=== PATIENT | female | born 1965 | race Caucasian/White ===

== ENCOUNTER 2019-06-28 11:23 | Emergency (ER) | payer BC, SELFPAY ==
[2019-06-28 11:24] VITALS: BP 186/83; PULSE 125; RESP 16; TEMP 36.4; O2SAT 99; BMI 32.3
--- NOTE | 2019-06-28 11:52 | EKG12_ITS ---
Test Reason : SUICIDAL Blood Pressure : / mmHG Vent. Rate : 100 BPM Atrial Rate : 100 BPM P-R Int : 156 ms QRS Dur : 076 ms QT Int : 376 ms P-R-T Axes : 067 035 039 degrees QTc Int : 485 ms Normal sinus rhythm Prolonged QT Abnormal ECG Confirmed by DEION RIVERO ([id number]), index editor JOHNATHAN ESQUIVEL ([id number] on 07/04/2019 3:45:14 PM Referred By: NICOLAS Confirmed By:DEION RIVERO
--- NOTE | 2019-06-28 11:58 | ED.DCSUM_ITS ---
History of Present Illness Chief Complaint: Suicidal Informant: Patient, Friend Onset: Days - Patient became aware 2 days ago that her has been dating someone else and that other family members were aware. Context: Sudden Onset Conflict: Family Timing: Continuous Current Severity: Moderate Maximum Severity: Severe Worsened by: Situational factors, Alcohol intoxication Relieved by: Nothing Associated Symptoms: Depressed, Change in Eating - Patient states has not had anything to eat in 2 to 3 days and minimal liquid intake, Change in sleeping, Decreased Interest, Decreased Concentration, Suicidal Thoughts, Easily distracted, Agitated, Angry. Negative for: Grandiosity, Flight of Ideas, Increased activity, Confusion, Paranoia, Visual Hallucinations, Auditory Hallucinations Specific plan (suicidal thought): Patient states she wants to hurt herself, but she does not have a plan. Narrative: Patient is a middle-age woman with history of lung disease and GERD who was brought to the emerge department by [employer]. She did not go to work today. Friend was concerned. Police were contacted for a welfare check. She told law enforcement she has not eaten. She told law enforcement that she is depressed. She told [place] that she would hurt herself. She has no history of psychiatric disorder. When asked for her explanation she began to cry and asked her friend who called for the welfare check to inform me of events. History is limited to the fact that she is depressed because her has been seeing someone else and other family members were aware. Patient has been living on her own for the last 2 days. Patient states she has not had any to eat in 2 to 3 days. There is been no alteration in sleep. Prior similar symptoms: No Recent Illness/Hospitalization: No - Past Medical History (1) History of COPD Status: Chronic (2) History of gastroesophageal reflux (GERD) Status: Acute Past Medical History - Allergies and Home Meds Allergies/Adverse Reactions: Allergies hydroxychloroquine [From Plaquenil] Allergy (Verified 06/28/19 11:28) Itching lorazepam [From Ativan] Allergy (Verified 06/28/19 11:28) Itching Primary Care Physician: Marium Alexis MD [Primary Care Provider] - Prior records reviewed: Yes Surgical History: noncontributory Lives: Alone Smoking Status: Current every day smoker Alcohol: Heavy Drugs: None Review of Systems General: Reports: Malaise. Denies: Chills, Fever, Sweats Eyes: Denies: Visual changes - bilaterally, Diplopia ENT: Denies: Rhinorrhea, Sore throat Cardiovascular: Denies: Chest pain, Palpitations Respiratory: Denies: Dyspnea, Cough, Dyspnea on exertion Gastrointestinal: Reports: Nausea Genitourinary: Denies: Dysuria, Hematuria, Frequency Musculoskeletal: Denies: Myalgias, Arthralgias, Neck pain, Back pain, Extremity Pain Skin: Denies: Rash, Abscess, Wounds Neurological: Denies: Headache, Weakness, Numbness Psych: Reports: Depression, Suicidal thoughts, Suicidal ideations Hematologic: Denies: Easy bruising, Easy bleeding Physical Exam Vital Signs/Narrative: Vital Signs Temp Pulse Resp BP Pulse Ox 06/28/19 11:24 97.5 F L 125 H 16 186/83 H 99 Inital Vital Signs reviewed: Yes General: Well nourished, Well developed, Obese Head: Normocephalic, Atraumatic Eyes: Perrl, EOMI, Pale conjunctiva, Scleral icterus, - - There is evidence of proptosis, which raises concern for thyroid disease ENT: No rhinorrhea, TM's clear, Dry mucous membranes Neck: Supple, Nontender, No lymphadenopathy, No JVD Cardiovascular: Regular rhythm, No murmurs, Normal S1, Normal S2, Tachycardia Respiratory: No distress, CTA bilaterally, Chest nontender Abdomen: Soft, Nontender, Nondistended, Normal bowel sounds Rectal: Deferred Back: Nontender, Normal Inspection Extremities: Nontender, No Edema Skin: Normal color, No rash Neurological: Alert, Oriented x3, Cranial nerves II-XII grossly intact, Normal Strength, Normal Sensation, Normal DTR Psych: Normal Appearance - In hospital gown when I examined her., Depressed, Irritable, Labile, Poverty of Speech, Suicidal thoughts. Negative for: Logical sequential goal directed thoughts, No suicidal or homicidal ideation, Normal Stable Appropriate Affect Diagnostic/Tx/Re-eval Laboratory Results 06/28/19 06/28/19 06/28/19 12:25 12:25 12:25 WBC 5.7 RBC 5.64 H Hgb 12.5 Hct 43.0 MCV 76.2 L MCH 22.2 L MCHC 29.1 L RDW Std Deviation 55.7 H RDW Coeff of Cornell 21.2 H Plt Count 407 MPV 9.9 Immature Gran % (Auto) 0.200 Neut % (Auto) 62.0 Lymph % (Auto) 27.6 [place] % (Auto) 8.6 Eos % (Auto) 0.5 Baso % (Auto) 1.1 H Absolute Neuts (auto) 3.5 Absolute Lymphs (auto) 1.57 Nucleated RBC % 0 Differential Comment SCANNED RBC Morphology N CHROM Anisocytosis 1+ Sodium 140 Potassium 3.9 Chloride 108 H Carbon Dioxide 16.0 L Anion Gap 16 H BUN 12 Creatinine 0.82 Estim Creat Clear Calc 74.28 Est GFR (MDRD) Af Amer 93 Est GFR (MDRD) Non-Af 77 BUN/Creatinine Ratio 14.6 Glucose 63 L Calcium 9.0 TSH 0.68 Serum , Qual Urine Opiates Screen Urine Methadone Screen Ur Barbiturates Screen Ur Phencyclidine Scrn Ur Amphetamines Screen U Methamphetamin-MDMA U Benzodiazepines Scrn Urine Cocaine Screen U Cannabinoids Screen Ur Drug Screen Comment Ethyl Alcohol 235.0 06/28/19 06/28/19 12:25 13:05 WBC RBC Hgb Hct MCV MCH MCHC RDW Std Deviation RDW Coeff of Cornell Plt Count MPV Immature Gran % (Auto) Neut % (Auto) Lymph % (Auto) [place] % (Auto) Eos % (Auto) Baso % (Auto) Absolute Neuts (auto) Absolute Lymphs (auto) Nucleated RBC % Differential Comment RBC Morphology Anisocytosis Sodium Potassium Chloride Carbon Dioxide Anion Gap BUN Creatinine Estim Creat Clear Calc Est GFR (MDRD) Af Amer Est GFR (MDRD) Non-Af BUN/Creatinine Ratio Glucose Calcium TSH Serum , Qual NEGATIVE Urine Opiates Screen NEGATIVE Urine Methadone Screen NEGATIVE Ur Barbiturates Screen NEGATIVE Ur Phencyclidine Scrn NEGATIVE Ur Amphetamines Screen NEGATIVE U Methamphetamin-MDMA NEGATIVE U Benzodiazepines Scrn NEGATIVE Urine Cocaine Screen NEGATIVE U Cannabinoids Screen NEGATIVE Ur Drug Screen Comment Ethyl Alcohol Blood work is unremarkable except for alcohol level of 236. This was consistent with the amount of alcohol she admits to drinking. - EKG Initial EKG Interpretation: Sinus Rhythm - Ventricular rate is 100. VT interval is 156 ms, QRS duration 76 ms. QT duration 3 and 76 ms QTc is 485 which is prolonged. [place] is normal. Patient depressed and despondent after becoming aware that her 's been having an affair and had family members knew and did not tell her. Based on patient's symptoms and voiced complaints blood work was obtained to assess renal function and hydration status. Because of the proptosis TSH was obtained. Case management was consulted to facilitate placement in psychiatric facility. She was pink slipped by law enforcement. Case management is working on placement to psychiatric facility. The oncoming physician were made aware of patient in the event there is any change in her clinical status. ED Disposition - Plan for ED Patient: Disposition: Psychiatric Hospital or Unit Diagnosis: Severe major depression, Alcohol intoxication, Sinus tachycardia by electrocardiogram Referrals: Marium Alexis MD [Primary Care Provider] -
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
[2019-06-28 12:35] LABS: Absolute Lymphocyte Count 1.57 X10^3/uL (0.83-4.51); Absolute Neutrophil Count 3.5 X10^3/uL (2.0-7.7); Basophil# 0.06 X10^3/uL; Basophil% 1.1 % (0-1); Eosinophil# 0.03 X10^3/uL; Eosinophils% 0.5 % (0-5); Hemoglobin 12.5 g/dL (12.0-15.0); Lymphocyte # 1.57 X10^3/ul (4.0); Lymphocyte % 27.6 % (19-41); Mean Corp Hgb Conc 29.1 g/dL (32-36); Mean Corpuscular Hgb 22.2 pg (27.0-32.0); Mean Corpuscular Volume 76.2 fL (81-99); Mean Platelet Vol. 9.9 fl (6.2-12.0); Monocyte# 0.49 X10^3/uL; Monocyte% 8.6 % (0-10); NRBC Flagged by Analyzer 0 % (0-5); Neutrophil # 3.52 X10^3/uL (2.7-7.7); POSITIVE MORPHOLOGY YES; Platelet Count 407 K/mm3 (150-450); RBC Distribution Width CV 21.2 % (11.6-14.6); RBC Distribution Width SD 55.7 fl (35.1-43.9); Red Blood Count 5.64 M/mm3 (4.2-5.4); White Blood Count 5.7 K/mm3 (4.4-11.0)
[2019-06-28 12:37] LABS: Differential Indicated SCAN CRITERIA MET
[2019-06-28 12:49] LABS: Internal QC Validated? YES +Cl - CLEAR BKGD; Pregnancy, Serum, hCG Quali. NEGATIVE Negative
--- NOTE | 2019-06-28 12:49 | ED.RN ---
PT ANGRY THAT SITTER NEEDS TO KEEP BATHROOM DOOR CRACKED FOR URINE SAMPLE. STATES WELL THEN YOU JUST WON'T GET ONE. THIS IS BULLSHIT.
[2019-06-28 12:57] LABS: Anisocytosis 1+; Differential Comment SCANNED; Red Cell Morphology N CHROM NORMAL (NORM C&C)
[2019-06-28 13:00] LABS: Anion Gap 16 (5-15); BUN 12 mg/dL (7-18); BUN/Creat Ratio 14.6 RATIO (10-20); Chloride 108 mmol/L (98-107); Creatinine, Serum 0.82 mg/dL (0.55-1.02); EST Glomerular Filtration Rate 77 mL/min (>60); Est Glom Filt Rate - Afr Amer 93 mL/min (>60); Estimated Creatinine Clearance 74.28 ml/min; Glucose 63 mg/dL (74-106); Potassium 3.9 mmol/L (3.5-5.1); Sodium Level 140 mmol/L (136-145); Thyroid Stim Hormone (TSH) 0.68 uIU/mL (0.358-3.74)
[2019-06-28 13:07] VITALS: RESP 16
[2019-06-28 13:27] LABS: Amphetamine Urine VISTA NEGATIVE (<1000 ng/mL); Barbiturate Urine VISTA NEGATIVE (< 200 ng/mL); Benzodiazepine Urine VISTA NEGATIVE (< 200 ng/mL); Cocaine Urine VISTA NEGATIVE (< 300 ng/mL); Ecstacy Urine VISTA NEGATIVE (< 500 ng/mL); Methadone Urine VISTA NEGATIVE (< 300 ng/mL); PCP Urine VISTA NEGATIVE (< 25 ng/mL); THC Urine VISTA NEGATIVE (< 50 ng/mL); Vista UDS pH Range 6
[2019-06-28 14:31] VITALS: BP 174/90; PULSE 115; RESP 14; O2SAT 94
--- NOTE | 2019-06-28 14:54 | CM.ED ---
Social Work Patient medically cleared for placement per Dr. Teresa. Telephone call to [facility], no open beds. Telephone call to [facility], Monica. There are openings and [facility] is in network with patient insurance. Clinical information faxed. Pending approval. Martir FRANK, RIVERA
--- NOTE | 2019-06-28 16:13 | CM.ED ---
Social Work Telephone call from [facility], Patient accepted. Nurse to nurse: [phone]. Admitting Doctor: Dr. Giraldo. Patient to admit to [facility]. [facility] faxed. Updated patient and medical team. Patient not agreeable to plan but [facility] slip is in place. Patient cooperative. Medical team agreeable to plan. Patient wanting this social professionals to update patient daughter. Rupa - [phone]. Telephone call to Rupa Goode updated on plan and voicing understanding. Martir Tavera MSW, RIVERA
[2019-06-28 17:43] VITALS: BP 174/90; PULSE 115; RESP 14; O2SAT 94
== END 2019-06-28 17:32 ==
PROVIDERS: Emergency Provider Emergency Medicine; Family Provider Internal Medicine; PCP Internal Medicine
DX: F32.2 Major depressive disorder, single episode, severe without psychotic features (principal); F10.129 Alcohol abuse with intoxication, unspecified; Y90.9 Presence of alcohol in blood, level not specified; R00.0 Tachycardia, unspecified; J44.9 Chronic obstructive pulmonary disease, unspecified; K21.9 Gastro-esophageal reflux disease without esophagitis; E66.9 Obesity, unspecified; F17.200 Nicotine dependence, unspecified, uncomplicated; Z68.32 Body mass index [BMI] 32.0-32.9, adult
CPT/HCPCS: 80048; 80307; 80320; 84443; 84703; 85025; 93005; 99285; G0480

== ENCOUNTER 2019-10-31 20:29 | Emergency (ER) | payer BC, SELFPAY ==
[2019-10-31 20:30] VITALS: BP 151/79; PULSE 79; RESP 22; TEMP 36.7; O2SAT 94; BMI 31.6
--- NOTE | 2019-10-31 21:04 | EKG12_ITS ---
Test Reason : DYSRHYTHMIA Blood Pressure : / mmHG Vent. Rate : 111 BPM Atrial Rate : 111 BPM P-R Int : 146 ms QRS Dur : 080 ms QT Int : 352 ms P-R-T Axes : 081 064 029 degrees QTc Int : 478 ms Sinus tachycardia Otherwise normal ECG Confirmed by DEION RIVERO ([id number]), legal editor JOHNATHAN ESQUIVEL ([id number]) on 11/03/2019 3:03:58 PM Referred By: DC Confirmed By:DEION RIVERO
--- NOTE | 2019-10-31 21:10 | CM.ED ---
SOCIAL WORK PATIENT ARRIVES TO ED BY [facility] AND PINK SLIPPED BY POLICE. PATIENT INTOXICATED. UNABLE TO EVALUATE AT THIS TIME. Sofia ACKERMAN, BLINDMAKER, BILINGUAL MANAGER.
[2019-10-31 21:15] LABS: Absolute Lymphocyte Count 1.64 X10^3/uL (0.83-4.51); Absolute Neutrophil Count 6.5 X10^3/uL (2.0-7.7); Basophil# 0.06 X10^3/uL; Basophil% 0.6 % (0-1); Eosinophil# 0.01 X10^3/uL; Eosinophils% 0.1 % (0-5); Hematocrit 41.4 % (37-47); Hemoglobin 12.2 g/dL (12.0-15.0); Lymphocyte # 1.64 X10^3/ul (4.0); Lymphocyte % 17.7 % (19-41); Mean Corp Hgb Conc 29.5 g/dL (32-36); Mean Corpuscular Hgb 22.1 pg (27.0-32.0); Mean Corpuscular Volume 75.1 fL (81-99); Mean Platelet Vol. 9.4 fl (6.2-12.0); Monocyte# 1.06 X10^3/uL; Monocyte% 11.4 % (0-10); NRBC Flagged by Analyzer 0 % (0-5); Neutrophil # 6.48 X10^3/uL (2.7-7.7); Neutrophil % 69.9 % (47-70); POSITIVE MORPHOLOGY YES; Platelet Count 409 K/mm3 (150-450); RBC Distribution Width CV 20.4 % (11.6-14.6); Red Blood Count 5.51 M/mm3 (4.2-5.4); White Blood Count 9.3 K/mm3 (4.4-11.0)
[2019-10-31 21:19] LABS: Differential Indicated SCAN CRITERIA MET
--- NOTE | 2019-10-31 21:26 | CM.ED ---
SOCIAL WORK UPDATED BY [facility] WITH REGISTRATION, UNABLE TO VERIFY INSURANCE AT THIS TIME. Sofia ACKERMAN, SUPPLY SPECIALIST, BOTTLE INSPECTOR
[2019-10-31 21:27] LABS: ALB/GLOB Ratio 0.9 RATIO (0.9-2.4); AST(SGOT) 60 U/L (15-37); Alanine Aminotransfer ALT/SGPT 159 U/L (13-56); Albumin, Serum 3.8 g/dL (3.2-5.0); Alkaline Phosphatase 82 U/L (45-117); Anion Gap 14 (5-15); BUN 11 mg/dL (7-18); BUN/Creat Ratio 11.7 RATIO (10-20); Calcium,Total 8.4 mg/dL (8.5-10.1); Chloride 109 mmol/L (98-107); Creatinine, Serum 0.94 mg/dL (0.55-1.02); EST Glomerular Filtration Rate 66 mL/min (>60); Est Glom Filt Rate - Afr Amer 80 mL/min (>60); Estimated Creatinine Clearance 64.79 ml/min; Globulin 4.3 g/dL (2.2-4.2); Glucose 71 mg/dL (74-106); Potassium 3.4 mmol/L (3.5-5.1); Protein, Total 8.1 g/dL (6.4-8.2); Sodium Level 142 mmol/L (136-145)
[2019-10-31 21:45] LABS: Amphetamine Urine VISTA NEGATIVE (<1000 ng/mL); Barbiturate Urine VISTA NEGATIVE (< 200 ng/mL); Benzodiazepine Urine VISTA NEGATIVE (< 200 ng/mL); Cocaine Urine VISTA NEGATIVE (< 300 ng/mL); Ecstacy Urine VISTA NEGATIVE (< 500 ng/mL); Methadone Urine VISTA NEGATIVE (< 300 ng/mL); PCP Urine VISTA NEGATIVE (< 25 ng/mL); THC Urine VISTA NEGATIVE (< 50 ng/mL); Vista UDS pH Range 5
[2019-10-31 21:53] LABS: Internal QC Validated? YES +Cl - CLEAR BKGD; Pregnancy, Serum, hCG Quali. NEGATIVE Negative
[2019-10-31 21:59] LABS: Anisocytosis 1+; Differential Comment SCANNED; Hypochromasia 1+; Target Cells RARE
[2019-10-31 22:00] VITALS: RESP 16
[2019-10-31 22:36] LABS: Acetaminophen (Tylenol) Level < 2.0 ug/mL (10.0-30.0); Salicylate 5.1 mg/dL (2.8-20.0)
--- NOTE | 2019-10-31 22:52 | ED.VISSUMM ---
- ER Visit Summary Date of Service: 10/31/19 Chief Complaint: Suicidal ideation History of Present Illness: The patient is a 53 F with suicidal ideation. The patient has been drinking heavily this evening. She was brought in accompanied by law enforcement. She had told to neighbors that she wanted to kill her self. She denies this for me. No plan or attempt. EMS found medication bottles in the home including Vistaril. Patient denies any other ingestion or drug use. Physical Examination: Afebrile and vital signs unremarkable. Patient alert and oriented. Head and neck atraumatic. HEENT exam normal. Heart regular. Lungs clear. Abdomen soft. Extremities atraumatic with good strength and sensation. Test Results: EKG sinus rhythm at a rate of 111. QTc 478. CBC unremarkable. Potassium 3.4, chloride 109, CO2 19, glucose 71. ALT 159 and AST 60. hCG negative. Salicylates negative. Tylenol negative. Alcohol level 381. Tox screen is negative. Emergency Department Course and Treatment: Patient had suicide precautions. Law enforcement officers completed a pink slip. Patient is clinically intoxicated and does admit to historical alcohol use. Alcohol level was 381. She will be monitored until clinically sober. Otherwise her labs were all fairly unremarkable. Patient will be observed overnight by the oncoming physician. She may eat and or drink as needed. Diet was ordered. She will need a crisis evaluation when she is clinically sober. Pending no further issues once the patient is clinically sober, she will be medically cleared for transfer and admission at a psychiatric facility. Treatment Plan: As above Disposition: Pending crisis evaluation Impression: 1. Alcohol intoxication 2. Suicidal ideation This note was generated with [email or web address] software. It may contain incorrect words, spelling, and punctuation that were not noted in review of the chart prior to signing ED Disposition - Plan for ED Patient: Referrals: Marium Alexis MD [Primary Care Provider] -
[2019-10-31 23:00] VITALS: RESP 16
[2019-11-01] VITALS (13 sets, daily range): BP systolic 144–174; BP diastolic 76–90; PULSE 70–114; RESP 14–18; TEMP 36.6–37.1; O2SAT 93–96
[2019-11-01] MEDS: proMETHazine 25 MG/ML Syringe 12.5 MG IM (00:16)
--- NOTE | 2019-11-01 06:45 | ED.RN ---
PATIENT VOMITED. SHE CAN'T HAVE MORE PHENERGAN TILL 800.
[2019-11-01] MEDS: Ondansetron ODT 4 MG Tablet PO (06:51)
--- NOTE | 2019-11-01 08:45 | ED.RN ---
PT REQUESTING AMMEDS. USUALLY TAKES THEN WHEN SHE GETS UP IN MORNING
[2019-11-01] MEDS: Citalopram 20 MG Tablet PO (08:47)
[2019-11-01] MEDS: Pantoprazole Sodium 40 MG Tablet PO (08:47)
[2019-11-01] MEDS: hydrOXYzine PAM 25 MG Capsule 50 MG PO (08:48)
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
--- NOTE | 2019-11-01 12:27 | CM.ED ---
Social Work Telephone call to [facility]. They do have open beds and accept patient insurance. Clinical information faxed. Currently pending updating blood alcohol level and will fax when obtained. Pending review/approval. Martir FRANK, RIVERA
--- NOTE | 2019-11-01 13:16 | CM.ED ---
Social Work Telephone call from [facility], requesting CK and Ammonia levels to be obtained. Updated medical team. Martir Tavera COMMISSIONS ANALYST, RIVERA
[2019-11-01 13:55] LABS: CPK Total, Creatine Kinase 667 U/L (26-192)
[2019-11-01 14:06] LABS: Ammonia < 10.0 umol/L (11-32)
--- NOTE | 2019-11-01 14:38 | CM.ED ---
Social Work Lab results back. Faxed CK, Ammonia level and blood alcohol levels to [facility] for further review. Martir Tavera SALES DEVELOPER, CORPORATE CONTROLLER
--- NOTE | 2019-11-01 14:50 | CM.ED ---
Social Work Telephone call from [facility]. [facility] stating that CK level is too high. [facility] recommending for patient to received fluids and then have lab value checked again, if the CK is trending down, at this point [facility] can be updated again and be able to review case further. Updated medical team on this including Dr. Marti. Patient to be given fluids and have labs checked in a few hours. Martir Tavera MSW, RIVERA
[2019-11-01] MEDS: 0.9% Normal Saline 1,000 ML 999 ML IV ×2 (15:05→16:07)
[2019-11-01 18:24] LABS: CPK Total, Creatine Kinase 540 U/L (26-192)
--- NOTE | 2019-11-01 18:40 | CM.ED ---
Social Work Updated CK lab value obtained. Faxed updated labs to [facility]. Pending further review. Martir Tavera LOADING SUPERVISOR, RIVERA
--- NOTE | 2019-11-01 19:19 | CM.ED ---
Social Work Telephone call from [facility], patient accepted. Patient accepted to the [facility]. Nurse to Nurse report: [phone]. Admitting Doctor: Dr. Giraldo. Updated patient and medical team. [facility] slip faxed. [facility] to set up transportation. Martir FRANK, RIVERA
== END 2019-11-01 20:42 ==
PROVIDERS: Emergency Medicine; Emergency Provider Emergency Medicine; PCP Internal Medicine
DX: R45.851 Suicidal ideations (principal); F10.129 Alcohol abuse with intoxication, unspecified; Y90.8 Blood alcohol level of 240 mg/100 ml or more; K21.9 Gastro-esophageal reflux disease without esophagitis; J44.9 Chronic obstructive pulmonary disease, unspecified; Z72.0 Tobacco use
CPT/HCPCS: 36415; 80053; 80307; 80320; 80329; 82140; 82550; 84703; 85025; 93005; 96360; 96361; 96372; 99285; J7030; A4216; G0480

== ENCOUNTER 2019-12-18 17:01 | Emergency (ER) | payer MEDICAID, SELFPAY ==
[2019-12-18 17:03] VITALS: BP 137/91; PULSE 102; RESP 18; TEMP 36.3; BMI 32.5
[2019-12-18 17:09] VITALS: BP 137/91; PULSE 94; RESP 18; TEMP 36.3; O2SAT 97
[2019-12-18] MEDS: Ibuprofen 400 MG Tablet 800 MG PO (17:28)
--- NOTE | 2019-12-18 17:30 | RAD_ITS ---
STUDY: X-RAY - LEFT KNEE REASON FOR EXAM: Female, 54 years old. EtOH, fall 3 days ago, left knee pain TECHNIQUE: 4 view(s) of the knee. COMPARISON: None. FINDINGS: Normal visualized distal femur. Normal visualized proximal tibia and fibula. Normal proximal tibiofibular articulation. There is no demonstrated fracture. Normal medial femorotibial compartment. Normal lateral femorotibial compartment. Normal patellofemoral articulation. There is no demonstrated joint effusion. The soft tissue structures are unremarkable. RAD/Knee 4 or More Views IMPRESSION: Normal x-ray examination of the knee. Electronically Signed: Lucas Tolbert MD at 17:55 EDT , Service support ,
--- NOTE | 2019-12-18 17:30 | RAD_ITS ---
STUDY: X-RAY CHEST REASON FOR EXAM: Female, 54 years old. EtOH, fall 3 days ago, rib pain, sob, fever TECHNIQUE: Single AP portable view of the chest. COMPARISON: None. FINDINGS: Prominent right subcutaneous emphysema. This makes it impossible to exclude small pneumothorax on the right. Subcutaneous emphysema seen in the neck. Multiple right rib fractures including the seventh and eighth ribs. No definite infiltrates or areas of atelectasis or effusions. Left lung is clear. Normal size heart. Normal mediastinum and renetta. Normal visualized pulmonary arteries. Normal visualized aortic arch and descending thoracic aorta. Normal visualized thoracic spine. Normal visualized ribs, clavicles, and shoulders. There is no demonstrated abnormality of the visualized soft tissue structures of the upper abdomen. RAD/Chest 1 View IMPRESSION: Multiple right rib fractures. Prominent right subcutaneous emphysema making it impossible to exclude pneumothorax although none definitely seen. Electronically Signed: Lucas Tolbert MD at 17:59 EDT , Service support ,
--- NOTE | 2019-12-18 17:45 | CT_ITS ---
STUDY: CT CHEST WITHOUT CONTRAST REASON FOR EXAM: Female, 54 years old. FALL 3 DAYS AGO,SOB AND RIB PAIN -- HX:ASTHMA RADIATION DOSAGE (If Supplied By Facility): CTDIvol = ( 18.17 ) mGy, DLP = ( 989.73 ) mGycm TECHNIQUE: Transaxial imaging was performed without the administration of intravenous contrast material. Individualized dose optimization techniques were used for this CT. COMPARISON: Chest x-ray of the same day which showed rib fractures and extensive subcutaneous emphysema.. FINDINGS: Normal lung volumes. Evidence of underlying COPD with centrilobular emphysema changes in the upper lobes. Miniscule right pneumothorax best seen along the anterior right lung base. No focal infiltrates contusions or areas of atelectasis. Severe subcutaneous emphysema throughout the right chest wall, and extending up into the neck, thoracic inlet, and as far as the base of the skull. Subcutaneous emphysema extends posteriorly along the back and is far as the mid abdomen. No effusions. Fractures of the right seventh, eighth, ninth, and ribs. No other fractures are seen. Normal heart and pericardium. Normal hilar regions. Normal unenhanced pulmonary arteries. Normal aorta arch and descending thoracic aorta. There is no demonstrated abnormality of the visualized upper abdomen. CT/Chest without Contrast IMPRESSION: Severe right sided subcutaneous emphysema. This is related to several right-sided rib fractures. Trivial right pneumothorax. Underlying COPD. No pulmonary opacities or effusions. Electronically Signed: Lucas Tolbert MD at 18:23 EDT , Service support ,
[2019-12-18 17:50] LABS: Absolute Lymphocyte Count 1.08 X10^3/uL (0.83-4.51); Absolute Neutrophil Count 4.8 X10^3/uL (2.0-7.7); Basophil# 0.06 X10^3/uL; Basophil% 0.9 % (0-1); Eosinophil# 0.12 X10^3/uL; Eosinophils% 1.7 % (0-5); Hematocrit 38.1 % (37-47); Hemoglobin 11.6 g/dL (12.0-15.0); Lymphocyte # 1.08 X10^3/ul (4.0); Lymphocyte % 15.7 % (19-41); Mean Corp Hgb Conc 30.4 g/dL (32-36); Mean Corpuscular Hgb 23.9 pg (27.0-32.0); Mean Corpuscular Volume 78.6 fL (81-99); Mean Platelet Vol. 9.5 fl (6.2-12.0); Monocyte# 0.78 X10^3/uL; Monocyte% 11.4 % (0-10); NRBC Flagged by Analyzer 0 % (0-5); Neutrophil # 4.78 X10^3/uL (2.7-7.7); Neutrophil % 69.6 % (47-70); POSITIVE MORPHOLOGY YES; Platelet Count 345 K/mm3 (150-450); RBC Distribution Width CV 24.5 % (11.6-14.6); RBC Distribution Width SD 67.7 fl (35.1-43.9); Red Blood Count 4.85 M/mm3 (4.2-5.4); White Blood Count 6.9 K/mm3 (4.4-11.0)
[2019-12-18 17:53] LABS: Differential Indicated SCAN CRITERIA MET
[2019-12-18 18:06] LABS: Albumin, Serum 3.6 g/dL (3.2-5.0); BUN 9 mg/dL (7-18); BUN/Creat Ratio 12.1 RATIO (10-20); Creatinine, Serum 0.75 mg/dL (0.55-1.02); EST Glomerular Filtration Rate 86 mL/min (>60); Est Glom Filt Rate - Afr Amer 104 mL/min (>60); Estimated Creatinine Clearance 80.27 ml/min; Glucose 122 mg/dL (74-106); Protein, Total 7.5 g/dL (6.4-8.2)
[2019-12-18 18:07] LABS: ALB/GLOB Ratio 0.9 RATIO (0.9-2.4); AST(SGOT) 141 U/L (15-37); Alanine Aminotransfer ALT/SGPT 232 U/L (13-56); Alkaline Phosphatase 80 U/L (45-117); Anion Gap 8 (5-15); Calcium,Total 8.9 mg/dL (8.5-10.1); Chloride 107 mmol/L (98-107); Globulin 3.9 g/dL (2.2-4.2); Potassium 3.3 mmol/L (3.5-5.1); Sodium Level 140 mmol/L (136-145)
[2019-12-18 18:12] VITALS: BP 147/75; PULSE 90; RESP 28; TEMP 36.4; O2SAT 99
[2019-12-18 18:20] LABS: Anisocytosis 2+; Differential Comment SCANNED; Macrocytosis 1+; Microcytosis 1+
--- NOTE | 2019-12-18 18:34 | ED.DCSUM_ITS ---
- ER Visit Summary Date of Service: 12/18/19 Chief Complaint: Fall History of Present Illness: The patient is a 54 F who presents with right rib pain and left knee pain that began after a fall 3 days ago. Patient states her pain has been getting progressively worse. Patient admits to drinking alcohol to help with the pain. Patient states the pain is sharp. Patient states the pain is localized to her right ribs and left knee. Patient states nothing makes it better or worse. Patient admits to some nausea and vomiting. Patient denies any shortness of breath. Patient denies any fevers or chills. Patient does admit to some neck and back pain. Physical Examination: Vital signs are stable. Patient is afebrile. Patient is in no acute distress. Patient admits to drinking alcohol and appears intoxicated. Oral mucosa is pink and moist. Neck is supple. Trachea is midline. There is no JVD. Heart was regular rate and rhythm. Lungs were diminished bilaterally. Respiratory effort was limited due to pain. There is subcutaneous emphysema noted in the right chest and neck. Abdomen is soft. Bowel sounds are normal. There is no tenderness. Extremities are intact. There is edema and ecchymosis over the left knee. Range of motion was slightly limited secondary to pain. There is no laxity appreciated. Cranial nerves II through XII are intact. There are no focal motor or sensory deficits. Test Results: AP chest x-ray was obtained. There is subcutaneous emphysema noted. There are multiple right rib fractures. There is no definite pneumothorax noted. X-rays of the left knee were obtained. There is no acute fracture or dislocation. CT scan of the chest was obtained. There is severe right-sided subcutaneous emphysema. There are several right-sided rib fractures. There is a very small right pneumothorax. There is COPD. There are no pleural effusions. There are no pulmonary opacities. This was interpreted by the radiologist and reviewed by myself. CBC and comprehensive metabolic profile were obtained and were essentially within normal limits. Serum alcohol level was obtained and was 296. Emergency Department Course and Treatment: Patient was given a dose of ibuprofen here. Patient was feeling better on reevaluation. Patient will be observed in the emergency department until she is clinically sober. Case was discussed with Dr. Goins, cash shortage investigator. He recommends having the patient follow-up as an outpatient. Since the pneumothorax is trivial, he does not feel chest tube is necessary at this time. Since the patient is not hypoxic, he does not feel the patient warrants admission to the hospital at this time. Patient will be given instructions on what to watch out for as far as signs and symptoms which should prompt return to the emergency department. Patient started complaining more of pain in the right side of her chest. Patient was given morphine. Patient was given a prescription for a short course of Percocet. Patient was instructed to follow-up with her primary care physician in 3 to 5 days. Patient understood and was agreeable with the plan. All questions were answered. Disposition: Discharge home Impression: 1. Multiple right rib fractures 2. Subcutaneous emphysema right chest and neck This note was generated with [employer] dictation software. It may contain incorrect words, spelling, and punctuation that were not noted in review of the chart prior to signing ED Disposition - Plan for ED Patient: Disposition: Home or Assisted Living Diagnosis: Multiple rib fractures, Subcutaneous emphysema, Alcohol intoxication Instructions: ED INTOXICATION Alcohol, ED Rib Fx Prescriptions: Oxycodone HCl/Acetaminophen [Percocet 5/325] 1 tab PO Q6H PRN PRN 3 Days #12 tab PRN Reason: Pain Prescription Printed Referrals: Marium Alexis MD [Primary Care Provider] - 5-7 Days
[2019-12-18] MEDS: Morphine 4 MG/ML Syringe IV (20:07)
[2019-12-18 20:11] VITALS: BP 129/70; PULSE 93; PULSE 95; RESP 20; RESP 22; TEMP 36.4; TEMP 36.6; O2SAT 98; O2SAT 99
[2019-12-18 21:45] VITALS: BP 128/66; PULSE 92; RESP 18; O2SAT 97
== END 2019-12-18 22:08 | disposition home or self-care (01) ==
PROVIDERS: Emergency Provider Emergency Medicine; PCP Internal Medicine
DX: S22.41XA Multiple fractures of ribs, right side, initial encounter for closed fracture (principal); T79.7XXA Traumatic subcutaneous emphysema, initial encounter; W19.XXXA Unspecified fall, initial encounter; Y93.9 Activity, unspecified; Y92.9 Unspecified place or not applicable; J44.9 Chronic obstructive pulmonary disease, unspecified; M25.562 Pain in left knee; F10.129 Alcohol abuse with intoxication, unspecified; Y90.9 Presence of alcohol in blood, level not specified
CPT/HCPCS: 71045; 71250; 73564; 80053; 80320; 85025; 96374; 99285; A4216; G0480

== ENCOUNTER 2019-12-18 22:50 | Inpatient (IN) | payer MEDICAID, SELFPAY ==
[2019-12-18 17:03] VITALS: BMI 32.5
[2019-12-18 22:51] VITALS: BP 152/118; PULSE 140; RESP 26; TEMP 36.7; O2SAT 95; BMI 29.0
[2019-12-18] MEDS: MethylPREDNISolone 125 MG/2 ML Vial IV (23:03)
[2019-12-18] MEDS: DiphenhydrAMINE 50 MG/ML Syringe IV (23:03)
[2019-12-18] MEDS: 0.9% Normal Saline 1,000 ML 999 ML IV (23:04)
[2019-12-18] MEDS: Famotidine 200 MG/20 ML MDV 20 MG in 0.9% Normal Saline (Pres. free 8 ML 300 MG IV (23:05)
[2019-12-18 23:08] VITALS: BP 153/83; PULSE 120; RESP 26; O2SAT 96
--- NOTE | 2019-12-18 23:10 | EKG12_ITS ---
Test Reason : ALLERGIC REACTION Blood Pressure : / mmHG Vent. Rate : 110 BPM Atrial Rate : 110 BPM P-R Int : 142 ms QRS Dur : 074 ms QT Int : 356 ms P-R-T Axes : 083 047 078 degrees QTc Int : 481 ms Sinus tachycardia Nonspecific T wave abnormality Abnormal ECG Confirmed by ESME DANIELLE, MOMO ([id number]), editorial specialist JOHNATHAN ESQUIVEL ([id number]) on 12/19/2019 1:41:22 PM Referred By: Thaddeus Garcia Confirmed By:MOMO VICTORIA MD
--- NOTE | 2019-12-18 23:18 | ED.RN ---
PT DISCHARGED FROM PRIOR VISIT AT 2208 12/18/19, NO SYMPTOMS OF ANGIOEDEMA AT TIME OF DISCHARGE.
[2019-12-19] VITALS (29 sets, daily range): BP systolic 145–187; BP diastolic 71–105; PULSE 66–94; RESP 12–28; TEMP 36.3–36.9; O2SAT 92–98; BMI 31.2; BMI 31.3
--- NOTE | 2019-12-19 01:09 | ED.DCSUM_ITS ---
- ER Visit Summary Date of Service: 12/19/19 Chief Complaint: Allergic reaction History of Present Illness: The patient is a [address] Dario Hylton. Patient had just left the emergency department in a cab when she began to experience facial swelling. She received ibuprofen and morphine here. She has had ibuprofen previously without any reaction. She is never had morphine before. The only other thing that she did here was eat a sandwich and have a peach yogurt. She reports that she did not not have any food allergies. Patient denies any change in soap, shampoo, laundry detergent, or fabric softener. No new clothing, bedding, carpeting, or pets. Patient complains of shortness of breath and facial swelling. States that she does feel lightheaded. Physical Examination: Vitals: 98.0, 153/83, 120, 26, 96% room air which is not hypoxic. General: Well-nourished and well-developed. Face: Right eye is swollen shut. There is moderate swelling of the left upper and lower eyelids. There is no angioedema of her lips, tongue, oropharynx. Head: Normocephalic atraumatic. Neck: Supple, no lymphadenopathy. No JVD. Nontender. Cardiovascular: Tachycardic regular rhythm. No murmurs. Respiratory: No respiratory distress. Clear to auscultation bilaterally. Severe tenderness outpatient over the lower ribs on the right. Abdominal: Soft, nontender, nondistended, normal bowel sounds. No guarding, rebound, or peritoneal signs. Back: Nontender. Extremities: Nontender, no edema. Skin: Normal color, no rash. Neurologic: Alert and oriented ?3. Cranial nerves II through XII are intact. Normal strength and sensation. Psych: Normal affect. Test Results: EKG is sinus tach at [address] changes. Emergency Department Course and Treatment: Patient was given epi IM. She was given Benadryl, Pepcid, and Solu-Medrol IV. She has been observed over the course of 4 hours and 15 minutes to the emergency department and the swelling to her right eye is actually worsening. I reviewed the patient's x-ray from earlier. It did show significant amount of subcutaneous air. Repeat x-ray was obtained and shows extension of this. I am concerned that I cannot tell where the border of her his lung is on the x-ray. So a CT of her chest was obtained. This shows a small pneumothorax and extensive subcutaneous air. The patient was discussed with Dr. Bender. She is seeing her in the emergency department is going to place pigtail catheter. Treatment Plan: She was discussed with Dr. Garcia and Dr. Bender. She will be admitted for further evaluation and treatment. Disposition: Admitted in stable condition. Impression: 1.. Pneumothorax on right with extensive subcutaneous air. 2. Right seventh, eighth, and ninth rib fractures. This note was generated with [employer] software. It may contain incorrect words, spelling, and punctuation that were not noted in review of the chart prior to signing ED Disposition - Plan for ED Patient:
[2019-12-19] MEDS: DiphenhydrAMINE 50 MG/ML Syringe IV (01:33)
--- NOTE | 2019-12-19 03:27 | RAD_ITS ---
STUDY: X-RAY CHEST REASON FOR EXAM: Female, 54 years old. RT SIDED PNEUMOTHORAX -- HX OF FALL WITH RT RIB FX , RT SIDED PNEUMOTHORAX AND SUBCUTANEOUS EMPHYSEMA TECHNIQUE: AP portable COMPARISON: CT chest and CXR from 12/18/2019 FINDINGS: Interval worsening diffuse subcutaneous emphysema throughout the chest. Pneumomediastinum is also visualized. The lungs demonstrate mild patchy lower lobe opacities limited in evaluation due to overlying subcutaneous emphysema likely atelectatic changes. No definite pneumothorax visualized.. There are multiple right rib fractures. RAD/Chest 1 View (Portable) IMPRESSION: Worsening subcutaneous emphysema throughout the chest with also pneumomediastinum. Trace right pneumothorax is not definitely visualized. Electronically Signed: Maurisio Elizabeth, at 4:23 EDT Tel , Service support ,
--- NOTE | 2019-12-19 03:45 | CT_ITS ---
STUDY: CT CHEST WITHOUT CONTRAST REASON FOR EXAM: Female, 54 years old. INCREASING,PNEUMOTHORAX POST FALL 3 DAYS AGO,RT RIB FRACTURES -- HX:ASTHMA RADIATION DOSAGE (If Supplied By Facility): CTDIvol = ( 18.81 ) mGy, DLP = ( 766.38 ) mGycm TECHNIQUE: Transaxial imaging was performed without the administration of intravenous contrast material. Individualized dose optimization techniques were used for this CT. COMPARISON: CT chest from 12/18/2019 FINDINGS: There is interval increase in right pneumothorax which remains small in size. There is a large amount of pneumomediastinum visualized. There are emphysematous lung changes. Mild right lung base opacities likely due to underlying atelectasis. Normal heart and pericardium. Normal mediastinum. Normal hilar regions. Normal unenhanced pulmonary arteries. Normal aorta arch and descending thoracic aorta. There is diffuse subcutaneous emphysema throughout the chest wall. There are fractures of the right seventh, eighth and ninth ribs. Cholelithiasis is visualized. CT/Chest without Contrast IMPRESSION: Interval increase in right pneumothorax which remains small in size. Worsening diffuse chest wall subcutaneous emphysema and pneumomediastinum. Probable right lung base atelectasis. Electronically Signed: Maurisio Elizabeth, at 4:38 EDT Tel , Service support ,
--- NOTE | 2019-12-19 03:58 | HP.PCM_ITS ---
Problem List (1) Subcutaneous emphysema Status: Acute (2) Ribs, multiple fractures Status: Acute (3) Pneumothorax on right Status: Acute Comment: Minuscule at right anterior base. (4) History of gastroesophageal reflux (GERD) Status: Acute (5) History of COPD Status: Chronic (6) Soft tissue swelling Status: Acute Comment: Of head and neck area History of Present Illness Date of Admission: 12/19/19 Chief Complaint: Diffuse swelling of face including both eyelids. Mild shortness of breath The patient is a 54 year old F with history of COPD came to ER the morning on 12/17 after she had fallen and hurt her right lower chest about 3 days ago prior to admission. His right sided rib pain and lower chest progressively getting worse along with mild shortness of breath. At that time chest x-ray followed by CT chest were done. Chest x-ray and CT chest were independently reviewed. It shows severe subcutaneous emphysema throughout the right chest wall extending up to the neck, thoracic inlet up to base of the skull. Subcutaneous emphysema extending posteriorly along the back as far as mid abdomen. Fracture of right seventh eighth and ninth ribs. Minuscule right pneumothorax at anterior right lung base. No focal infiltrate or atelectasis. Patient was sent home after discussion with the acetylene gas compressor with outpatient follow-up after she bilateral better with ibuprofen. Patient was given morphine with prescription of short course of Percocet. On the same day in the evening, patient came back with swelling of right eyelid. Initially, it was thought she has allergic reaction with morphine and was given IV Solu-Medrol, Benadryl and Pepcid. But this did not improve the swelling but got worse and progressed to left eyelid and generalized facial swelling while she was in the ER. This is also accompanied with mild shortness of breath. Repeat chest x-ray ordered and shows progression of the subcutaneous emphysema in the head and neck region. After that, decided to admit the patient. Basic labs done in the ER is at baseline in acceptable limit except K3.3. Glucose 122. Mildly elevated transaminases, ALT 232, AST 141 she has history of chronic alcohol use with alcohol of 381 on 10/31/2019 and 296 found today. Past Medical History Past Medical History (Chronic Problems): Chronic Problems History of COPD (Chronic) Allergies hydroxychloroquine [From Plaquenil] Allergy (Verified 12/18/19 22:54) Itching lorazepam [From Ativan] Allergy (Verified 12/18/19 22:54) Itching Home Medications: Ambulatory Orders Medication Instructions Recorded Norethindrone 1 tab PO DAILY 06/28/19 Hydroxyzine Pamoate 50 mg PO BID 11/01/19 Trazodone HCl 150 mg PO QHS 11/01/19 Citalopram [Celexa] 20 mg PO DAILY 12/18/19 Oxycodone HCl/Acetaminophen 1 tab PO Q6H PRN PRN 3 Days #12 tab 12/18/19 [Percocet 5/325] Surgical History: noncontributory Smoking Status: Current every day smoker Alcohol: Heavy Drugs: None - *Family History Paternal History Items: Heart Disease Review of Systems Constitutional: Denies: Chills, Fever, Weight Change Eyes: Reports: - - Upper and lower eyelids of both eyes are edematous, swollen and closed. HEENT: Denies: Head Aches, Sinus Congestion, Sinus Drainage Cardiovascular: Reports: Chest Pain - Right lower chest at rib fracture site.. Denies: Palpitations Respiratory: Reports: Cough - Chronic cough secondary to COPD, no acute change, Pleuritic Pain, Shortness of Breath - Mild short of breath, Shortness of breath upon exertion. Denies: Shortness of breath at rest, Sputum production Gastrointestinal: Denies: Abdominal Pain, Nausea, Vomiting Genitourinary: Denies: Dysuria Musculoskeletal: Reports: Joint Pain. Denies: Joint Tenderness Skin: Denies: Rash, Wounds Neurological: Denies: Numbness, Tingling, Focal weakness Psychiatric: Reports: Anxiety, Depression. Denies: Homicidal Ideations, Suicidal Ideations Hematologic/ Lymphatic: Denies: Easy Bruising, Easy Bleeding VTE Information - Inpt Only VTE Present on Admission: No VTE Mechan Device Prophylaxis: SCD's VTE Pharm Prophylaxis ordered?: Yes Patient Problems: Active and Suspected Problems Subcutaneous emphysema (Acute) Ribs, multiple fractures (Acute) Pneumothorax on right (Acute) Minuscule at right anterior base. Soft tissue swelling (Acute) Of head and neck area - Physical Exam Vitals/I&O's: Vital Signs Temp Pulse Resp BP Pulse Ox 98.0 F 94 22 H 170/85 H 93 12/18/19 22:51 12/19/19 02:42 12/19/19 02:42 12/19/19 02:42 12/19/19 02:42 Oxygen Flow Rate (L/min) 2 Oxygen Delivery Method Nasal Cannula Weight: 180 lb Body Mass Index (BMI) 29.0 Intake and Output for Last 24 Hours 12/17/19 12/18/19 12/19/19 23:59 23:59 23:59 Intake Total 1000 / 1000 Balance 1000 / 1000 General: Oriented x3, Cooperative, Lethargic HEENT: Atraumatic, PERRLA, EOMI, Normocephalic Oral: - - Deep oropharyngeal structures are crowded. Base of tongue, soft palate and posterior pharyngeal wall not visualized. Neck: Supple, No JVD, Negative Carotid Bruits Lungs: Clear to auscultation, No rhonchi, No wheeze, No rales, Diminished - Air entry is diminished bilaterally Cardiovascular: Regular Rhythm, Normal S1, Normal S2, No murmurs, Tachycardic, - - Soft tissue crepitus/emphysema over right lower chest, extending up to the head and neck region, both eyelids, and face. Extends posteriorly into right upper abdomen Abdomen: Bowel Sounds Present, Soft, Non Tender, Non-Distended Extremities: No edema, Capillary Refill Less than 3 Seconds Skin: No rashes, No breakdown Musculoskeletal: No Tenderness to Palpation of Joints or Extremities, Arthritic Changes Neurological: Cranial nerves II-XII grossly intact, Deep Tendon Reflexes 2+/4 and Symmetrical, Neuro grossly intact Psych/Mental Status: Normal Affect, Appropriate Assessment/Plan All Active Problems History of gastroesophageal reflux (GERD) (Acute) Subcutaneous emphysema (Acute) Ribs, multiple fractures (Acute) Pneumothorax on right (Acute) Soft tissue swelling (Acute) The patient is a 54 year old F with history of COPD came to ER the morning on 12/17 after she had fallen and hurt her right lower chest about 3 days ago prior to admission, resulting into right lower chest pain, mild shortness of breath and right seventh eighth and ninth rib fractures along with extensive subcutaneous emphysema and minuscule right anterior lung base pneumothorax. Basic labs done in the ER is at baseline in acceptable limit except K3.3. Glucose 122. Mildly elevated transaminases, ALT 232, AST 141 she has history of chronic alcohol use with alcohol of 381 on 10/31/2019 and 296 found today. EKG shows sinus tachycardia at [address]-T changes. 1. Fall with extensive subcutaneous emphysema after right lower seventh, eighth and ninth ribs fracture: Patient is being admitted in ICU for airway monitoring and worsening of subcutaneous emphysema. This is extended up to head and neck region, eyelids, muslim and face. Balance Bridge Assembler Dr. Goins has already been discussed in the morning by Dr. Adam. It does not seem allergic reaction as soft tissue crepitus is palpable and subcutaneous air seen on chest x-ray and CT. Patient is empirically on IV Solu- Medrol, Benadryl and Pepcid. CK ordered. 2. Minuscule right anterior cardiophrenic angle pneumothorax: Does not need intervention. Further monitoring with chest x-ray as needed. No noninvasive positive pressure ventilation.Incentive spirometry when patient is stable, is mo re alert and able. 3. COPD: Does not seem to be an emphysema. Bronchodilator as needed. 4. Mild alcoholic hepatitis secondary to chronic alcohol use, and HALLMAN : Alcohol level was 296. GGT ordered. Monitor LFT. Alcohol cessation advised. U tox ordered. Other comorbidities include GERD, anxiety and depression, morbid obesity and chronic alcohol use and dependence: DVT prophylaxis: Lovenox 40 mg subcu daily. Living will/advanced directive/end of life care: Patient does not have living will or advanced directive. After discussion of procedures involved with full code, DNR CC arrest and DNR CC, she opted for full code. Patient does not want artificial life support including intubation, tube feed, ventilator and/chest compression, central venous catheter, vasopressor and DC shock if needed Full code. Total time spent in [id number] encounter in discussion of advanced directive [address] Chest Normal lung volumes. Evidence of underlying COPD with centrilobular emphysema changes in the upper lobes. Miniscule right pneumothorax best seen along the anterior right lung base. No focal infiltrates contusions or areas of atelectasis. Severe subcutaneous emphysema throughout the right chest wall, and extending up into the neck, thoracic inlet, and as far as the base of the skull. Subcutaneous emphysema extends posteriorly along the back and is far as the mid abdomen. No effusions. Fractures of the right seventh, eighth, ninth, and ribs. No other fractures are seen. Normal heart and pericardium. Normal hilar regions. Normal unenhanced pulmonary arteries. Normal aorta arch and descending thoracic aorta. There is no demonstra Inpatient E&M: 00527 Init Hosp L3 Procedures: 55012 Advncd Care Plan 30 Min
[2019-12-19] MEDS: Morphine 4 MG/ML Syringe IV (05:10)
--- NOTE | 2019-12-19 06:45 | NURSING ---
122 subcutaneoius emphyesema, rib fx tosha
[2019-12-19] MEDS: fentaNYL 100 MCG/2 ML Ampul 50 MCG IV ×6 (07:29→22:36)
--- NOTE | 2019-12-19 07:33 | ED.RN ---
DR RODRIGUEZ IN ROOM TO INSERT CHEST TUBE
--- NOTE | 2019-12-19 07:51 | RAD_ITS ---
STUDY: X-RAY CHEST REASON FOR EXAM: Female, 54 years old. CHEST TUBE PLACEMENT TECHNIQUE: Single AP portable view of the chest. COMPARISON: Comparison is made with prior study done on the same day at 3:28 AM. FINDINGS: A small caliber chest tube has been placed in the right hemithorax with the tip in the upper medial portion of the right upper lobe. Stable marked degree of subcutaneous emphysema throughout the chest. No pneumothorax is seen at this time. Normal size heart. Normal mediastinum and renetta. Normal visualized pulmonary arteries. Normal visualized aortic arch and descending thoracic aorta. Normal visualized thoracic spine. Once again, multiple right-sided rib fractures. There is no demonstrated abnormality of the visualized soft tissue structures of the upper abdomen. RAD/Chest 1 View (Portable) IMPRESSION: Stable appearance of the diffuse subcutaneous emphysema overlying the entire chest. A small caliber chest tube has been placed with the tip in the upper medial portion of the right upper lobe. Once again, there is evidence of multiple right-sided rib fractures. Electronically Signed: Devin Avalos, at 8:20 EDT , Service support ,
--- NOTE | 2019-12-19 07:55 | ED.RN ---
CHEST TUBE COMPLETE
--- NOTE | 2019-12-19 08:06 | PCM.CONS.B ---
- Consult Date of Consult: 12/19/19 - Reason for Consult Chief Complaint: rib fractures History of Present Illness: 54 y/o WF presents s/p fall in the bathroom and hit her right torso on the tub edge. She presented to ED and was found to have multiple right rib fractures - 7, 8, and 9. She denies shortness of breath. She has known asthma and takes advair diskus. She also admits to TOB use - 1-2 packs per day for 40 years. She presented to ED again with swelling of eyes causing them to be swollen shut and was found to have significant subcutaneous emphysema that extends to the chest, neck and face. A call was placed to the trauma surgeon at [facility] stating that placement of pigtail catheter should resolve above. An 8 Fr thoracostomy drainage tube was placed in the ED - air leak was noted. Past Medical History: obesity BMI 32 COPD/asthma/TOB use anxiety/depression disorder history of alcohol abuse Past Surgical History: csection D&C Medications: vistaril trazodone celexa trexan advair diskus prudence omeprazole Allergies: hydroxychloroquine, lorazepam Social history: TOB use see HPI ETOH see PMH Review of Systems: General - denies fevers, denies weight loss, denies anorexia Cardiovascular denies history of heart attack Pulmonary see HPI Gastrointestinal denies abdominal pain Neurological denies seizures Genitourinary denies burning with urination, denies blood in urine Hematological denies spontaneous/prolonged bleeding Skin denies open non healing wounds Musculoskeletal rib fractures as above Endocrine denies diabetes Psychological denies hallucinations Physical examination: Vital signs Temp 98F HR 84 BP 181/77 RR 22 General WD/WN WF in no apparent distress, alert and oriented HEENT Normocephalic. Eyes (swollen shut) and face with significant swelling and subcutaneous emphysema noted. Lungs no rales/rhonchi/wheezing noted. No labored breathing noted, such as retractions. No cough heard. Heart regular rate Abdomen soft and benign and obese, difficult to determine if any masses due to body habitus Extremities no calf tenderness noted. No pitting edema noted. Genitourinary/Rectal deferred Skin see above, otherwise normal skin integrity. Neurological non focal. Psychological normal affect, patient is calm and appropriate Impression: multiple right rib fractures small right pneumothorax pneumomediastinum subcutaneous emphysema shortness of breath COPD/asthma/heavy TOB use Discussion/Plan: I have discussed the above with the patient. Will plan placement of thoracostomy tube. I have explained the procedure to the patient. I have counseled the patient as to the risks of the procedure, including but not limited to: infection, bleeding, injury to any blood vessels/nerves, scar tissue, further need for placement of chest tubes for non resolution, wound infections, etc. the patient understands. She wishes to proceed. I have answered all questions to the patient?s satisfaction and the patient has no further questions.
--- NOTE | 2019-12-19 08:13 | NURSING ---
ICU 6
--- NOTE | 2019-12-19 08:26 | PCM.OPRPT ---
Report of Operation Date of Procedure: 12/19/19 Pre-Operative Diagnosis: multiple right rib fractures, right pneumothorax, pneumomediastinum Post-Operative Diagnosis: same Surgery/Procedure Performed:: placement of right chest thoracostomy tube Description of Surgical Findings:: right chest tube with tip directed medially Type of Anesthesia:: Local - 1% xylocaine Specimen's removed: none Estimated Blood Loss (mL): minimal Description of Procedure: After informed consent was given, patient was placed in supine sitting up position. Patient given IV fentanyl as ordered by the ED physician. Appropriate time out protocol was followed. The upper right chest was cleansed with a sterile surgical skin preparation, appropriate sterile drapes were placed. The anatomical landmarks were palpated and the skin and subcutaneous tissues at the proposed site of placement of the tube was infiltrated with local anesthetic. A small skin incision was made with an 11 blade scalpel. The trocar needle with overlying catheter was then directed into the pleural cavity and aspiration was done to note that it was at the proper position. The catheter was then directed superiorly as the needle trocar was removed. There was noted aspiration of air in the tubing and fogging. The catheter was then attached to the Pleurevac device and placed to wall suction at 30 cm. There was a noted air leak. The catheter was sutured to the skin and sterile dressing was applied. Patient tolerated procedure. - Complications none noted
[2019-12-19] MEDS: 0.9% Normal Saline 1,000 ML 75 ML IV ×2 (09:38→22:21)
[2019-12-19] MEDS: Potassium Chloride 10mEq/100mL 10 MEQ/100 ML IV.SOLN. 100 MEQ IV BOLUS (09:52)
[2019-12-19 10:00] LABS: Magnesium 1.9 mg/dL (1.6-2.6)
--- NOTE | 2019-12-19 10:01 | CON.PCM_ITS ---
Problem List (1) History of COPD Status: Chronic (2) History of gastroesophageal reflux (GERD) Status: Acute (3) Subcutaneous emphysema Status: Acute (4) Ribs, multiple fractures Status: Acute Qualifiers: Encounter type: initial encounter Fracture type: closed Laterality: right Qualified Code(s): S22.41XA - Multiple fractures of ribs, right side, initial encounter for closed fracture (5) Pneumothorax on right Status: Acute Comment: Minuscule at right anterior base. (6) Soft tissue swelling Status: Acute Comment: Of head and neck area Reason for Consult Date of Consultation: 12/19/19 Reason for Consultation: Pneumothorax with subcutaneous emphysema History of Present Illness: The patient is a 54 year old F, with past medical history listed below, who presented to [facility] emergency department in a cab secondary to facial swelling. Patient had received ibuprofen and morphine on a previous ER visit. Patient stated that she had had a sandwich and some peach yogurt, but does not have any history of food allergies. Patient had reportedly fallen the day previously and gone to bed overnight. On repeat presentation, patient had reported facial swelling and shortness of breath. On presentation to the ER, patient was noted to be 96% on room air. There was moderate swelling of the left upper and lower eyelids with no reported angioedema of the face. EKG was unremarkable except for some tachycardia. Patient had been given epinephrine, Benadryl, Pepcid and Solu-Medrol and observed for 4 hours. Chest x-ray had showed a mild pneumothorax with significant subcutaneous air. This was confirmed with a CT of the chest showing a small pneumothorax with extensive subcutaneous air. Dr. Bender was called and a chest tube was placed in the emergency department. Patient was then admitted to the intensive care unit for close airway monitoring. On my evaluation, patient was denying any shortness of breath and felt subjective improvement in overall condition after initiation of chest tube. Patient was unable to open her eyes secondary to subcutaneous emphysema. Patient was reporting right-sided chest pain, but this was improved following 50 mcg of fentanyl. Patient denied any nausea or vomiting. Patient has not reported any recent fever, chills, URI or GI symptoms. Patient had a right- sided chest tube that was placed to suction. Patient does report a history of COPD in the past and stated that she had a pulmonary function test that almost killed me. Patient was told that she had poor lungs but does not know the results of this testing. Patient does use Advair and Flonase as an outpatient. Patient is also on omeprazole and recently was started on Percocet. Review of systems otherwise negative from a constitutional, HEENT, respiratory, cardiovascular, GI, genitourinary, musculoskeletal, skin, neurologic, psychiatric and hematologic system unless stated above. Past Medical History Past Medical History (Chronic Problems): Chronic Problems History of COPD (Chronic) Allergies hydroxychloroquine [From Plaquenil] Allergy (Verified 12/18/19 22:54) Itching lorazepam [From Ativan] Allergy (Verified 12/18/19 22:54) Itching Home Medications: Ambulatory Orders Medication Instructions Recorded Norethindrone 1 tab PO DAILY 06/28/19 Hydroxyzine Pamoate 50 mg PO BID 11/01/19 Trazodone HCl 150 mg PO QHS PRN 11/01/19 Citalopram [Celexa] 20 mg PO DAILY 12/18/19 Oxycodone HCl/Acetaminophen 1 tab PO Q6H PRN PRN 3 Days #12 tab 12/18/19 [Percocet 5/325] Fexofenadine/Pseudoephedrine 1 ea PO DAILY 12/19/19 [Shilpa-D 24 Hour Tablet] Fluticasone/Salmeterol [Advair Hfa 1 - 2 puff INHALATION DAILY 12/19/19 115-21 Mcg Inhaler] Omeprazole Magnesium [Prilosec Otc] 20 mg PO DAILY 12/19/19 Surgical History: noncontributory Smoking Status: Current every day smoker Tobacco Use: Cigarettes Alcohol: Heavy Drugs: None - *Family History Paternal History Items: Heart Disease Review of Systems Comment: See HPI Patient Problems: Active and Suspected Problems Subcutaneous emphysema (Acute) Ribs, multiple fractures (Acute) Pneumothorax on right (Acute) Minuscule at right anterior base. Soft tissue swelling (Acute) Of head and neck area Objective: All imaging was personally reviewed. Patient does appear to have at least 3 broken ribs on the right-hand side, 1 of which being significantly displaced. Patient also has significant subcutaneous emphysema noted on CT scan with emp hysematous changes. No acute infiltrate is appreciated. No significant pleural effusion is noted. No previous PFT or echocardiogram are available for review. - Physical Exam Vitals/I&O's: Vital Signs Temp Pulse Resp BP Pulse Ox 36.8 C 77 22 H 171/86 H 97 12/19/19 08:20 12/19/19 08:20 12/19/19 08:20 12/19/19 08:20 12/19/19 08:20 Oxygen Flow Rate (L/min) 5 Oxygen Delivery Method Nasal Cannula Weight: 87.9 kg Body Mass Index (BMI) 31.2 Intake and Output for Last 24 Hours 12/17/19 12/18/19 12/19/19 23:59 23:59 23:59 Intake Total 1000 / 1000 Balance 1000 / 1000 General: Alert, Oriented x3, Cooperative, - - Mild distress. Significant swelling/crepitus noted throughout upper extremities, chest, back, neck and face HEENT: Atraumatic, Normocephalic, - - Significant eyelid crepitus with inability to visualize the eye Oral: Moist Mucosa, No Gingival or Mucosal Lesions/ Ulcerations, - - Crowded posterior pharynx Neck: Supple, No JVD, No Nodes, Trachea Midline Lungs: No rhonchi, No wheeze, No rales, Diminished, - - Right-sided chest tube is clean, dry and intact Cardiovascular: Normal S1, Normal S2, No murmurs, No rub noted, No Gallop, Tachycardic Abdomen: Bowel Sounds Present, Soft, Non Tender, Non-Distended Extremities: No clubbing, No cyanosis, No edema, - - Crepitus noted through the hands bilateral upper extremities. Skin: No rashes, No breakdown, - - Crepitus noted to the costophrenic angle circumferentially Musculoskeletal: No Tenderness to Palpation of Joints or Extremities Lymphatic: No Cervical, Supraclavicular, or Inguinal Adenopathy Neurological: Cranial nerves II-XII grossly intact, Neuro grossly intact Psych/Mental Status: Alert and oriented to time, place, person, mood and affect Laboratory Results 12/19/19 08:40: Magnesium 1.9 Current Medications Acetaminophen (Tylenol) 650 mg PO Q6H PRN PRN PRN Reason: Pain Score 1-10/Temp > 100.7 F Albuterol Sulfate (Ventolin Aerosols) 2.5 mg INHALATION Q2H PRN PRN PRN Reason: SOB/Wheezing Citalopram Hydrobromide (Celexa) 20 mg PO DAILY JOSHUA Diphenhydramine HCl (Benadryl) 25 mg IV Q6 JOSHUA Enoxaparin Sodium (Lovenox) 40 mg SC DAILY [facility] Fentanyl Citrate (Sublimaze (100mcg Ampule)) 50 mcg IV Q2H PRN PRN PRN Reason: Pain Score 4-10/10 Last Admin: 12/19/19 09:45 Dose: 50 mcg Documented by: Glucagon () 1 mg IM .X1 PRN PRN Reason: Hypoglycemia Sodium Chloride () 1,000 mls @ 75 mls/hr IV .[id number] JOSHUA Last Admin: 12/19/19 09:38 Dose: 75 mls/hr Documented by: Famotidine 20 mg/ Sodium (Chloride) 10 mls @ 300 mls/hr IV Q12 JOSHUA Potassium Chloride () 10 meq in 100 mls @ 100 mls/hr IV BOLUS Q1H [facility] Stop: 12/19/19 12:59 Last Admin: 12/19/19 09:52 Dose: 100 mls/hr Documented by: Dextrose (Dextrose 10%-Water) 250 mls @ 999 mls/hr IV .Q16M PRN; Protocol PRN Reason: HYPOGLYCEMIA Nitroglycerin (Nitrostat) 0.4 mg SUBLINGUAL Q5M PRN PRN Reason: CARDIAC/CHEST PAIN Non-Formulary Medication (Norethindrone) 1 tab PO DAILY [facility] Pantoprazole Sodium (Protonix) 20 mg PO DAILY [facility] Prochlorperazine Edisylate (Compazine Iv) 5 mg IV Q4H PRN PRN PRN Reason: Breakthrough Nausea/Vomiting Senna/Docusate Sodium (Senokot-S, Guillermina-Colace) 2 tablet PO BID PRN PRN Reason: Constipation Sodium Chloride () 10 - 40 ml IV UD PRN PRN Reason: SALINE FLUSH Trazodone HCl (Desyrel) 150 mg PO QHS [facility] Clinical Impression(s) from Imaging Studies Chest X-Ray 12/19/19 03:27 IMPRESSION: Worsening subcutaneous emphysema throughout the chest with also pneumomediastinum. Trace right pneumothorax is not definitely visualized. Electronically Signed: Maurisio Elizabeth, at 4:23 EDT Tel , Service support , Chest CT 12/19/19 03:45 IMPRESSION: Interval increase in right pneumothorax which remains small in size. Worsening diffuse chest wall subcutaneous emphysema and pneumomediastinum. Probable right lung base atelectasis. Electronically Signed: Maurisio Elizabeth, at 4:38 EDT Tel , Service support , Chest X-Ray 12/19/19 07:51 IMPRESSION: Stable appearance of the diffuse subcutaneous emphysema overlying the entire chest. A small caliber chest tube has been placed with the tip in the upper medial portion of the right upper lobe. Once again, there is evidence of multiple right-sided rib fractures. Electronically Signed: Devin Robbie, at 8:20 EDT , Service support , Assessment/Plan Active and Suspected Problems Subcutaneous emphysema (Acute) Ribs, multiple fractures (Acute) Pneumothorax on right (Acute) Minuscule at right anterior base. Soft tissue swelling (Acute) Of head and neck area RECOMMENDATIONS: 1. Continue chest tube management per surgery 2. Discontinue Benadryl 3. Add Pulmicort therapy as therapeutic substitution 4. Monitor airway closely 5. Low threshold for CIWA protocol. IMPRESSIONS: 1. Airway compromise secondary to extensive subcutaneous emphysema secondary to multiple right-sided rib fractures with pneumothorax Patient has a chest tube in place. CT scan shows extensive subcutaneous emphysema, pneumomediastinum and small right-sided pneumothorax. Patient does have 1 rib fracture that appears to be moderately displaced. This is likely the etiology of patient's eyelid swelling, so would discontinue Benadryl, Solu- Medrol and Pepcid. Keep chest tube to suction for now. Continue to monitor airway closely. Patient does not have any stridor or other signs of airway compromise at this time. Patient does have extensive emphysematous changes. Would recommend adding Pulmicort as a therapeutic substitution for baseline COPD meds 2. COPD Exact quantification is unclear at this time. Patient does have extensive emphysematous changes noted on CT scan of the chest. Patient is on Advair at baseline. Patient is receiving albuterol, but would add Pulmicort for therapeutic substitution of home medications. Anticipate need for chest tube for several days. 3. Suspected alcoholic hepatitis/Long/GERD/anxiety/depression/morbid obesity Complicates care, management, recovery and prognosis. Patient with significant alcohol level on presentation. We will have to watch patient closely for possible withdrawal. Low clinical threshold for initiation of CIWA protocol. Inpatient E&M: [id number] Init Hosp L3
[2019-12-19] MEDS: Enoxaparin 40 MG/0.4 ML Syringe SC (10:18)
[2019-12-19] MEDS: Citalopram 20 MG Tablet PO (10:18)
[2019-12-19] MEDS: Pantoprazole Sodium 20 MG Tablet PO (10:18)
[2019-12-19] MEDS: Famotidine 200 MG/20 ML MDV 20 MG in 0.9% Normal Saline (Pres. free 8 ML 300 MG IV (10:37)
--- NOTE | 2019-12-19 11:09 | CASEMGMT ---
Social Work Assessment Referral Date: 12/19/2019 Date of Assessment: 12/19/2019 Reason for referral: Self-pay, history of ETOH abuse Informant: RISSA Personal Status: SW met with pt to complete initial assessment. Pt is alert and orientated x3, eyes are swollen shut. Pt states that she lives alone in an apartment with 4-5 steps to enter. Pt states that she was previously independent with ADLs, states she still drives. Pt states that she was working up until October when she lost her job. Pt states that she has no DME in the home, states her PCP is Dr. Cee and preferred pharmacy is [facility]. Pt states she hopes to be getting another job once she leaves [facility]. SW spoke with pt regarding self-pay. Pt again states she lost her job in October 2019 so she is not sure if she still has insurance or not. SW updated pt that per [facility] PFS, pt is listed as self-pay. SW spoke with pt regarding medicaid. Pt again states that she hopes to get another job when she leaves [facility] and won't need medicaid. SW did provide pt with Medicaid application in the event that pt is unable to get a job right away and pt needs insurance. RISSA also provided pt with additional financial resources including [employer], [employer], [employer], Rx assistance programs, Good RX information and HCAP application. Pt states she will review resources once she is able to see. Mental Health History: Pt states that she has history of depression and anxiety, and currently see's a counselor at [facility]. Pt states that her counselor's name is Ayla and she has been in counseling for the last few months. Pt states that she recently went through a divorce and decided to get into counselor to help with the process and coping with the divorce. Pt states that she was seeing Ayla about once a week and was attending her group once a week but now due to the Coronovirus she is unable to go into the agency. Pt states that [facility] is doing phone sessions but clients need to have an Iphone to do sessions and pt doesn't have an Iphone. Pt does confirm she has Ayla's number if she needs to get a hold of her. Pt states she does have a history of Suicidal Ideations. Pt states that she was placed in [facility] in June of 2019 and October 2019 for substance abuse and mental health. Pt states that in June 2019 pt was at [facility] for 7 days and in October 2019 pt was at [facility] for 4 days. Pt states I said the wrong thing to the wrong patient and got placed at [facility]. Pt is able to identify that her ETOH use is linked with her Mental Health. Pt denied any current suicidal/homicidal thoughts/plans/ideations. Pt does state that her daughter Michelle and her counselor Ayla are good support for pt. Substance Abuse History: Pt does admit to ETOH use, denies other substances. Pt states that she was drinking for 3-4 days then would quit for 3-4 days and then binge again for 3-4 days and then quit again. Pt states that Ayla is a substance abuse counselor as well as MH and has been helping pt with substance abuse as well as MH. Pt states Ayla was also managing a substance abuse group once a week that pt was attending and pt was also provided AA meetings. Pt plans on following up with her counselor Ayla at discharge. Pt also states that she is linked up with a couple groups on [employer] for support for ETOH use as well. Pt states that going to counseling has been beneficial for her. Pt denied additional needs or concerns at this time, states that her plan is to return home at discharge. Plan: Home no needs. Pt to follow up with her counselor Ayla at [facility] at discharge for continued care of pt's MH and substance abuse. Mariluz Nassar [employer], [employer]STER
[2019-12-19] MEDS: Potassium Chloride 10mEq/100mL 10 MEQ/100 ML IV.SOLN. 75 MEQ IV BOLUS ×2 (11:20→12:56)
[2019-12-19] MEDS: hydroCHLOROthiazide 12.5mg 12.5 MG PO (12:53)
[2019-12-19] MEDS: Lisinopril 20 MG Tablet PO (12:53)
[2019-12-19] MEDS: Acetaminophen 325 MG Tablet 650 MG PO ×2 (15:19→22:20)
[2019-12-19] MEDS: amLODIPine 5 MG Tablet PO ×2 (15:20→19:00)
[2019-12-19] MEDS: Potassium Chloride 10mEq/100mL 10 MEQ/100 ML IV.SOLN. 50 MEQ IV BOLUS (15:20)
[2019-12-19] MEDS: NORETHINDRONE 0.35 MG TABLET PO (16:45)
[2019-12-19 17:30] LABS: Amphetamine Urine VISTA NEGATIVE (<1000 ng/mL); Barbiturate Urine VISTA NEGATIVE (< 200 ng/mL); Benzodiazepine Urine VISTA NEGATIVE (< 200 ng/mL); Cocaine Urine VISTA NEGATIVE (< 300 ng/mL); Ecstacy Urine VISTA NEGATIVE (< 500 ng/mL); Methadone Urine VISTA NEGATIVE (< 300 ng/mL); PCP Urine VISTA NEGATIVE (< 25 ng/mL); THC Urine VISTA NEGATIVE (< 50 ng/mL); Vista UDS pH Range 6
[2019-12-19] MEDS: 0.9% Saline Lock 10 ML Syringe IV (20:36)
[2019-12-19] MEDS: oxyCODONE 5 MG Tablet PO (22:21)
[2019-12-19] MEDS: traZODone 50 MG Tablet 150 MG PO (22:22)
[2019-12-20] VITALS (17 sets, daily range): BP systolic 115–159; BP diastolic 62–76; PULSE 63–85; RESP 13–20; TEMP 36.2–36.9; O2SAT 92–96
[2019-12-20] MEDS: fentaNYL 100 MCG/2 ML Ampul 50 MCG IV ×3 (01:28→08:36)
[2019-12-20] MEDS: 0.9% Saline Lock 10 ML Syringe IV (01:30)
[2019-12-20] MEDS: Acetaminophen 325 MG Tablet 650 MG PO ×3 (04:36→21:55)
[2019-12-20] MEDS: oxyCODONE 5 MG Tablet PO ×5 (04:36→22:47)
[2019-12-20 04:42] LABS: Absolute Lymphocyte Count 1.44 X10^3/uL (0.83-4.51); Absolute Neutrophil Count 8.2 X10^3/uL (2.0-7.7); Basophil# 0.02 X10^3/uL; Basophil% 0.2 % (0-1); Eosinophil# 0.02 X10^3/uL; Eosinophils% 0.2 % (0-5); Hematocrit 35.1 % (37-47); Hemoglobin 10.8 g/dL (12.0-15.0); Lymphocyte # 1.44 X10^3/ul (4.0); Lymphocyte % 13.3 % (19-41); Mean Corp Hgb Conc 30.8 g/dL (32-36); Mean Corpuscular Hgb 24.4 pg (27.0-32.0); Mean Corpuscular Volume 79.2 fL (81-99); Mean Platelet Vol. 9.9 fl (6.2-12.0); Monocyte# 1.09 X10^3/uL; Monocyte% 10.1 % (0-10); NRBC Flagged by Analyzer 0 % (0-5); Neutrophil # 8.22 X10^3/uL (2.7-7.7); Neutrophil % 75.7 % (47-70); POSITIVE MORPHOLOGY YES; Platelet Count 338 K/mm3 (150-450); RBC Distribution Width CV 24.1 % (11.6-14.6); Red Blood Count 4.43 M/mm3 (4.2-5.4); White Blood Count 10.8 K/mm3 (4.4-11.0)
[2019-12-20 04:43] LABS: Differential Indicated SCAN CRITERIA MET
[2019-12-20 04:57] LABS: ALB/GLOB Ratio 0.8 RATIO (0.9-2.4); AST(SGOT) 56 U/L (15-37); Alanine Aminotransfer ALT/SGPT 132 U/L (13-56); Alkaline Phosphatase 68 U/L (45-117); Anion Gap 8 (5-15); BUN 11 mg/dL (7-18); BUN/Creat Ratio 17.4 RATIO (10-20); CPK Total, Creatine Kinase 117 U/L (26-192); Calcium,Total 8.9 mg/dL (8.5-10.1); Chloride 101 mmol/L (98-107); Creatinine, Serum 0.63 mg/dL (0.55-1.02); EST Glomerular Filtration Rate 104 mL/min (>60); Est Glom Filt Rate - Afr Amer 126 mL/min (>60); Estimated Creatinine Clearance 95.57 ml/min; GGTP 370 U/L (5-55); Globulin 3.8 g/dL (2.2-4.2); Glucose 104 mg/dL (74-106); Potassium 3.4 mmol/L (3.5-5.1); Protein, Total 6.8 g/dL (6.4-8.2); Sodium Level 136 mmol/L (136-145)
[2019-12-20 05:01] LABS: Differential Comment SCANNED
[2019-12-20 05:02] LABS: Anisocytosis 1+; Macrocytosis RARE; Polychromasia RARE
--- NOTE | 2019-12-20 06:52 | PN_ITS ---
Subjective: Patient did well overnight. Patient continues to report significant right-sided chest pain. Subcutaneous emphysema has improved. Patient has been able to take p.o. medications well and is asking for a diet. Patient reports mild clear sputum with coughing, but this is difficult. Patient does report using incentive spirometer. Objective: No air leak appreciated from chest tube. General: Alert, Oriented x3, Cooperative, No apparent distress, - - Obese. Speaking in full sentences. Subcutaneous emphysema much improved HEENT: Atraumatic, PERRLA, EOMI, Normocephalic, - - Able to open eyes. Oral: Moist Mucosa, No Gingival or Mucosal Lesions/ Ulcerations Neck: Supple, No JVD, No Nodes, Trachea Midline Lungs: No rhonchi, No wheeze, No rales, Diminished - Fair effort, - - Symmetric expansion Cardiovascular: Regular rate, Regular Rhythm, Normal S1, Normal S2, No murmurs, No rub noted, No Gallop Abdomen: Bowel Sounds Present, Soft, Non Tender, Non-Distended Extremities: No clubbing, No cyanosis, No edema, - - Crepitus remains Skin: No rashes, No breakdown Musculoskeletal: No Tenderness to Palpation of Joints or Extremities Lymphatic: No Cervical, Supraclavicular, or Inguinal Adenopathy Neurological: Cranial nerves II-XII grossly intact, Neuro grossly intact, Motor Exam 5/5 strength throughout Psych/Mental Status: Alert and oriented to time, place, person, mood and affect Vital Signs Temp Pulse Resp BP Pulse Ox 36.4 C L 64 15 129/71 H 95 12/20/19 05:00 12/20/19 06:00 12/20/19 06:00 12/20/19 06:00 12/20/19 06:00 Oxygen Flow Rate (L/min) 2 Oxygen Delivery Method Nasal Cannula Weight: 89.6 kg Body Mass Index (BMI) 31.2 Intake and Output for Last 24 Hours 12/18/19 12/19/19 12/20/19 23:59 23:59 23:59 Intake Total 3163.75 / 3163.75 100 / 100 Output Total 1150 / 1150 100 / 100 Balance 2012.75 / 2012.75 0 / 0 Labs (Last 48 Hours) 12/19/19 12/19/19 12/20/19 08:40 16:55 04:25 WBC 10.8 RBC 4.43 Hgb 10.8 L Hct 35.1 L MCV 79.2 L MCH 24.4 L MCHC 30.8 L RDW Std Deviation 68.0 H RDW Coeff of [place] 24.1 H Plt Count 338 MPV 9.9 Immature Gran % (Auto) 0.500 Neut % (Auto) 75.7 H Lymph % (Auto) 13.3 L [place] % (Auto) 10.1 H Eos % (Auto) 0.2 Baso % (Auto) 0.2 Absolute Neuts (auto) 8.2 H Absolute Lymphs (auto) 1.44 Nucleated RBC % 0 Differential Comment SCANNED Polychromasia RARE Anisocytosis 1+ Macrocytosis RARE Sodium Potassium Chloride Carbon Dioxide Anion Gap BUN Creatinine Estim Creat Clear Calc Est GFR (MDRD) Af Amer Est GFR (MDRD) Non-Af BUN/Creatinine Ratio Glucose Calcium Magnesium 1.9 Total Bilirubin GGT AST ALT Alkaline Phosphatase Total Creatine Kinase Total Protein Albumin Globulin Albumin/Globulin Ratio Urine Opiates Screen POSITIVE H Urine Methadone Screen NEGATIVE Ur Barbiturates Screen NEGATIVE Ur Phencyclidine Scrn NEGATIVE Ur Amphetamines Screen NEGATIVE U Methamphetamin-MDMA NEGATIVE U Benzodiazepines Scrn NEGATIVE Urine Cocaine Screen NEGATIVE U Cannabinoids Screen NEGATIVE Ur Drug Screen Comment 12/20/19 04:25 WBC RBC Hgb Hct MCV MCH MCHC RDW Std Deviation RDW Coeff of [place] Plt Count MPV Immature Gran % (Auto) Neut % (Auto) Lymph % (Auto) [place] % (Auto) Eos % (Auto) Baso % (Auto) Absolute Neuts (auto) Absolute Lymphs (auto) Nucleated RBC % Differential Comment Polychromasia Anisocytosis Macrocytosis Sodium 136 Potassium 3.4 L Chloride 101 Carbon Dioxide 27.0 Anion Gap 8 BUN 11 Creatinine 0.63 Estim Creat Clear Calc 95.57 Est GFR (MDRD) Af Amer 126 Est GFR (MDRD) Non-Af 104 BUN/Creatinine Ratio 17.4 Glucose 104 Calcium 8.9 Magnesium Total Bilirubin 1.00 GGT 370 H AST 56 H ALT 132 H Alkaline Phosphatase 68 Total Creatine Kinase 117 Total Protein 6.8 Albumin 3.0 L Globulin 3.8 Albumin/Globulin Ratio 0.8 L Urine Opiates Screen Urine Methadone Screen Ur Barbiturates Screen Ur Phencyclidine Scrn Ur Amphetamines Screen U Methamphetamin-MDMA U Benzodiazepines Scrn Urine Cocaine Screen U Cannabinoids Screen Ur Drug Screen Comment Clinical Impression(s) from Imaging Studies Chest X-Ray 12/19/19 07:51 IMPRESSION: Stable appearance of the diffuse subcutaneous emphysema overlying the entire chest. A small caliber chest tube has been placed with the tip in the upper medial portion of the right upper lobe. Once again, there is evidence of multiple right-sided rib fractures. Electronically Signed: Devin Avalos, at 8:20 EDT , Service support , Medical Necessity - Tobacco Use Smoking Status: Current every day smoker Tobacco Use: Cigarettes Assessment/Plan All Active Problems History of gastroesophageal reflux (GERD) (Acute) Subcutaneous emphysema (Acute) Ribs, multiple fractures (Acute) Pneumothorax on right (Acute) Soft tissue swelling (Acute) RECOMMENDATIONS: 1. Continue chest tube management per surgery 2. Continue albuterol and pulmicort 3. Ok to leave the ICU from my perspective IMPRESSIONS: 1. Airway compromise secondary to extensive subcutaneous emphysema secondary to multiple right-sided rib fractures with pneumothorax Patient has a chest tube in place. CT scan shows extensive subcutaneous emphysema, pneumomediastinum and small right-sided pneumothorax. Patient does have 1 of 3 rib fracture that appears to be moderately displaced. Keep chest tube to suction for now. Continue to monitor airway closely. Patient does not have any stridor or other signs of airway compromise at this time. Patient does have extensive emphysematous changes. Continue BD and pulmicort for now. 2. COPD Exact quantification is unclear at this time. Patient does have extensive emphysematous changes noted on CT scan of the chest. Patient continues to require chest tube in my opinion as she still has significant subcutaneous emphysema. Patient does not have a leak at this time. Patient will need to wait 3 to 6 months before having any pulmonary function test 3. Suspected alcoholic hepatitis/Long/GERD/anxiety/depression/morbid obesity Complicates care, management, recovery and prognosis. Patient with significant alcohol level on presentation. We will have to watch patient closely for possible withdrawal. Low clinical threshold for initiation of CIWA protocol. Inpatient E&M: 53319 [facility] Hosp L3
--- NOTE | 2019-12-20 07:56 | PCM.PN.SRG ---
Patient Problems: Active and Suspected Problems Subcutaneous emphysema (Acute) Ribs, multiple fractures (Acute) Pneumothorax on right (Acute) Minuscule at right anterior base. Soft tissue swelling (Acute) Of head and neck area Subjective: Patient able to open eyes, subcutaneous emphysema has improved, patient feels sore Denies tremors - Physical Exam Vitals/I&O's: Vital Signs Temp Pulse Resp BP Pulse Ox 97.6 F L 64 15 129/71 H 95 12/20/19 05:00 12/20/19 06:00 12/20/19 06:00 12/20/19 06:00 12/20/19 06:00 Oxygen Flow Rate (L/min) 2 Oxygen Delivery Method Nasal Cannula Weight: 89.6 kg Body Mass Index (BMI) 31.2 Intake and Output for Last 24 Hours 12/18/19 12/19/19 12/20/19 23:59 23:59 23:59 Intake Total 3163.75 / 3163.75 100 / 100 Output Total 1150 / 1150 100 / 100 Balance 75 / 75 0 / 0 General: Alert, Oriented x3 HEENT: - - eyes open, decreased swelling Oral: Moist Mucosa Neck: Supple Lungs: Normal air movement - no air leak noted Abdomen: Soft Laboratory Results 12/19/19 08:40: Magnesium 1.9 12/19/19 16:55: Urine Opiates Screen POSITIVE H, Urine Methadone Screen NEGATIVE, Ur Barbiturates Screen NEGATIVE, Ur Phencyclidine Scrn NEGATIVE, Ur Amphetamines Screen NEGATIVE, U Methamphetamin-MDMA NEGATIVE, U Benzodiazepines Scrn NEGATIVE, Urine Cocaine Screen NEGATIVE, U Cannabinoids Screen NEGATIVE, Ur Drug Screen Comment 12/20/19 04:25: WBC 10.8, RBC 4.43, Hgb 10.8 L, Hct 35.1 L, MCV 79.2 L, MCH 24.4 L, MCHC 30.8 L, RDW Std Deviation 68.0 H, RDW Coeff of [place] 24.1 H, Plt Count 338, MPV 9.9, Immature Gran % (Auto) 0.500, Neut % (Auto) 75.7 H, Lymph % (Auto) 13.3 L, [place] % (Auto) 10.1 H, Eos % (Auto) 0.2, Baso % (Auto) 0.2, Absolute Neuts (auto) 8.2 H, Absolute Lymphs (auto) 1.44, Nucleated RBC % 0, Differential Comment SCANNED, Polychromasia RARE, Anisocytosis 1+, Macrocytosis RARE 12/20/19 04:25: Sodium 136, Potassium 3.4 L, Chloride 101, Carbon Dioxide 27.0, Anion Gap 8, BUN 11, Creatinine 0.63, Estim Creat Clear Calc 95.57, Est GFR (MDRD) Af Amer 126, Est GFR (MDRD) Non-Af 104, BUN/Creatinine Ratio 17.4, Glucose 104, Calcium 8.9, Total Bilirubin 1.00, GGT 370 H, AST 56 H, ALT 132 H, Alkaline Phosphatase 68, Total Creatine Kinase 117, Total Protein 6.8, Albumin 3.0 L, Globulin 3.8, Albumin/Globulin Ratio 0.8 L Current Medications Acetaminophen (Tylenol) 650 mg PO Q6H PRN PRN PRN Reason: Pain Score 1-10/Temp > 100.7 F Last Admin: 12/20/19 04:36 Dose: 650 mg Documented by: Albuterol Sulfate (Ventolin Aerosols) 2.5 mg INHALATION Q2H PRN PRN PRN Reason: SOB/Wheezing Amlodipine Besylate (Norvasc) 10 mg PO DAILY [facility] Citalopram Hydrobromide (Celexa) 20 mg PO DAILY [facility] Last Admin: 12/19/19 10:18 Dose: 20 mg Documented by: Enoxaparin Sodium (Lovenox) 40 mg SC DAILY [facility] Last Admin: 12/19/19 10:18 Dose: 40 mg Documented by: Fentanyl Citrate (Sublimaze (100mcg Ampule)) 50 mcg IV Q2H PRN PRN PRN Reason: Pain Score 4-10/10 Last Admin: 12/20/19 05:16 Dose: 50 mcg Documented by: Hydrochlorothiazide () 12.5 mg PO DAILY [facility] Last Admin: 12/19/19 12:53 Dose: 12.5 mg Documented by: Sodium Chloride () 1,000 mls @ 75 mls/hr IV .[id number] [facility] Last Admin: 12/19/19 22:21 Dose: 75 mls/hr Documented by: Labetalol HCl (Trandate) 10 mg IV Q6H PRN PRN PRN Reason: SBP >160 Last Admin: 12/19/19 22:24 Dose: 10 mg Documented by: Lisinopril (Zestril) 20 mg PO DAILY [facility] Last Admin: 12/19/19 12:53 Dose: 20 mg Documented by: Norethindrone (Dione) 0.35 mg PO DAILY [facility] Last Admin: 12/19/19 16:45 Dose: 0.35 mg Documented by: Nutritional Formula (Lactose Free) (Ensure Enlive) 120 ml PO 4X/DAY [facility] Last Admin: 12/19/19 22:11 Dose: Not Given Documented by: Oxycodone HCl (Oxyir) 5 mg PO Q6H PRN PRN PRN Reason: Pain Score 6-10/10 Last Admin: 12/20/19 04:36 Dose: 5 mg Documented by: Pantoprazole Sodium (Protonix) 20 mg PO DAILY [facility] Last Admin: 12/19/19 10:18 Dose: 20 mg Documented by: Potassium Chloride (K-Dur) 20 meq PO X1 ONE Stop: 12/20/19 08:01 Prochlorperazine Edisylate (Compazine Iv) 5 mg IV Q4H PRN PRN PRN Reason: Breakthrough Nausea/Vomiting Senna (Senokot) 2 tablet PO BID PRN PRN PRN Reason: CONSTIPATION Sodium Chloride () 10 - 40 ml IV UD PRN PRN Reason: SALINE FLUSH Last Admin: 12/20/19 01:30 Dose: 20 ml Documented by: Trazodone HCl (Desyrel) 150 mg PO QHS [facility] Last Admin: 12/19/19 22:22 Dose: 150 mg Documented by: Medical Necessity - Tobacco Use Smoking Status: Current every day smoker Tobacco Use: Cigarettes Assessment/Plan All Active Problems History of gastroesophageal reflux (GERD) (Acute) Subcutaneous emphysema (Acute) Ribs, multiple fractures (Acute) Pneumothorax on right (Acute) Soft tissue swelling (Acute) Impression: multiple right rib fractures resulting in pneumothorax/pneumomediastinum/subcutaneous emphysema - clinically improving Plan: Continue thoracic catheter wall suction to 30 cm Encourage incentive spirometry agree with transfer to [place] per Dr. Haro
--- NOTE | 2019-12-20 09:09 | NURSING ---
report called to [employer]
--- NOTE | 2019-12-20 09:15 | NURSING ---
to PCU 118 per chair, [facility] in attendance
[2019-12-20] MEDS: 0.9% Normal Saline 1,000 ML 75 ML IV ×2 (10:14→21:54)
[2019-12-20] MEDS: Lisinopril 20 MG Tablet PO (10:15)
[2019-12-20] MEDS: Citalopram 20 MG Tablet PO (10:16)
[2019-12-20] MEDS: NORETHINDRONE 0.35 MG TABLET PO (10:16)
[2019-12-20] MEDS: Pantoprazole Sodium 20 MG Tablet PO (10:16)
[2019-12-20] MEDS: hydroCHLOROthiazide 12.5mg 12.5 MG PO (10:16)
[2019-12-20] MEDS: Enoxaparin 40 MG/0.4 ML Syringe SC (10:17)
[2019-12-20] MEDS: amLODIPine 10 MG Tablet PO (10:19)
--- NOTE | 2019-12-20 16:35 | PCM.PROGNOTE ---
Patient Problems: Active and Suspected Problems Subcutaneous emphysema (Acute) Ribs, multiple fractures (Acute) Pneumothorax on right (Acute) Minuscule at right anterior base. Soft tissue swelling (Acute) Of head and neck area Subjective: Patient was seen and examined today, she is on low-flow nasal cannula oxygen at this time, she has less swelling around her eyes and is able to open her eyes today. Patient still having significant rib pain, I took her off of IV pain medication and transitioned her to oral pain medications. I also talked briefly with general surgery about her care, general surgery prefers to wait another 24 hours before removing the patient's thoracostomy tube. Patient denies any shortness of breath or chest discomfort, she does complain of intermittent right-sided rib pain. - Physical Exam Vitals/I&O's: Vital Signs Temp Pulse Resp BP Pulse Ox 97.2 F L 71 18 121/68 H 92 12/20/19 15:56 12/20/19 15:56 12/20/19 15:56 12/20/19 15:56 12/20/19 15:56 Oxygen Flow Rate (L/min) 2 Oxygen Delivery Method Nasal Cannula Weight: 89.6 kg Body Mass Index (BMI) 31.2 Intake and Output for Last 24 Hours 12/18/19 12/19/19 12/20/19 23:59 23:59 23:59 Intake Total 3163.75 / 3163.75 1691.25 / 1691.25 Output Total 1150 / 1150 101 / 101 Balance / 1590.25 / 1590.25 General: Alert, Oriented x3, Cooperative, No apparent distress, Well developed HEENT: Atraumatic, PERRLA, EOMI, Normocephalic Oral: Moist Mucosa Neck: Supple, No JVD, Trachea Midline, Thyroid Normal Size and Texture Lungs: Clear to auscultation, Normal air movement, No rhonchi, No wheeze, No rales Cardiovascular: Regular rate, Regular Rhythm, Normal S1, Normal S2, No murmurs, PMI Normal, No rub noted, No Gallop Abdomen: Bowel Sounds Present, Soft, Non Tender, Non-Distended, No hernias noted Extremities: No clubbing, No cyanosis, No edema, Capillary Refill Less than 3 Seconds Skin: No rashes, No breakdown, - - Evidence of subcutaneous emphysema is noted over the patient's chest wall, neck, and facial area. Musculoskeletal: No Tenderness to Palpation of Joints or Extremities Neurological: Cranial nerves II-XII grossly intact, Neuro grossly intact, Sensory exam intact to light touch and pain, Coordination normal Psych/Mental Status: Normal Affect, Appropriate, Alert and oriented to time, place, person, mood and affect Laboratory Results 12/19/19 16:55: Urine Opiates Screen POSITIVE H, Urine Methadone Screen NEGATIVE, Ur Barbiturates Screen NEGATIVE, Ur Phencyclidine Scrn NEGATIVE, Ur Amphetamines Screen NEGATIVE, U Methamphetamin-MDMA NEGATIVE, U Benzodiazepines Scrn NEGATIVE, Urine Cocaine Screen NEGATIVE, U Cannabinoids Screen NEGATIVE, Ur Drug Screen Comment 12/20/19 04:25: WBC 10.8, RBC 4.43, Hgb 10.8 L, Hct 35.1 L, MCV 79.2 L, MCH 24.4 L, MCHC 30.8 L, RDW Std Deviation 68.0 H, RDW Coeff of [place] 24.1 H, Plt Count 338, MPV 9.9, Immature Gran % (Auto) 0.500, Neut % (Auto) 75.7 H, Lymph % (Auto) 13.3 L, [place] % (Auto) 10.1 H, Eos % (Auto) 0.2, Baso % (Auto) 0.2, Absolute Neuts (auto) 8.2 H, Absolute Lymphs (auto) 1.44, Nucleated RBC % 0, Differential Comment SCANNED, Polychromasia RARE, Anisocytosis 1+, Macrocytosis RARE 12/20/19 04:25: Sodium 136, Potassium 3.4 L, Chloride 101, Carbon Dioxide 27.0, Anion Gap 8, BUN 11, Creatinine 0.63, Estim Creat Clear Calc 95.57, Est GFR (MDRD) Af Amer 126, Est GFR (MDRD) Non-Af 104, BUN/Creatinine Ratio 17.4, Glucose 104, Calcium 8.9, Total Bilirubin 1.00, GGT 370 H, AST 56 H, ALT 132 H, Alkaline Phosphatase 68, Total Creatine Kinase 117, Total Protein 6.8, Albumin 3.0 L, Globulin 3.8, Albumin/Globulin Ratio 0.8 L Current Medications Acetaminophen (Tylenol) 650 mg PO Q6H PRN PRN PRN Reason: Pain Score 1-10/Temp > 100.7 F Last Admin: 12/20/19 10:50 Dose: 650 mg Documented by: Albuterol Sulfate (Ventolin Aerosols) 2.5 mg INHALATION Q2H PRN PRN PRN Reason: SOB/Wheezing Amlodipine Besylate (Norvasc) 10 mg PO DAILY [facility] Last Admin: 12/20/19 10:19 Dose: 10 mg Documented by: Citalopram Hydrobromide (Celexa) 20 mg PO DAILY [facility] Last Admin: 12/20/19 10:16 Dose: 20 mg Documented by: Enoxaparin Sodium (Lovenox) 40 mg SC DAILY [facility] Last Admin: 12/20/19 10:17 Dose: 40 mg Documented by: Hydrochlorothiazide () 12.5 mg PO DAILY [facility] Last Admin: 12/20/19 10:16 Dose: 12.5 mg Documented by: Sodium Chloride () 1,000 mls @ 75 mls/hr IV .[id number] [facility] Last Admin: 12/20/19 10:14 Dose: 75 mls/hr Documented by: Lisinopril (Zestril) 20 mg PO DAILY [facility] Last Admin: 12/20/19 10:15 Dose: 20 mg Documented by: Norethindrone (Dione) 0.35 mg PO DAILY [facility] Last Admin: 12/20/19 10:16 Dose: 0.35 mg Documented by: Nutritional Formula (Lactose Free) (Ensure Enlive) 120 ml PO 4X/DAY [facility] Last Admin: 12/20/19 14:33 Dose: Not Given Documented by: Oxycodone HCl (Oxyir) 10 - 15 mg PO Q4H PRN PRN PRN Reason: Pain Score 6-10/10 Last Admin: 12/20/19 14:28 Dose: 15 mg Documented by: Pantoprazole Sodium (Protonix) 20 mg PO DAILY [facility] Last Admin: 12/20/19 10:16 Dose: 20 mg Documented by: Prochlorperazine Edisylate (Compazine Iv) 5 mg IV Q4H PRN PRN PRN Reason: Breakthrough Nausea/Vomiting Senna (Senokot) 2 tablet PO BID PRN PRN PRN Reason: CONSTIPATION Sodium Chloride () 10 - 40 ml IV UD PRN PRN Reason: SALINE FLUSH Last Admin: 12/20/19 01:30 Dose: 20 ml Documented by: Trazodone HCl (Desyrel) 150 mg PO QHS [facility] Last Admin: 12/19/19 22:22 Dose: 150 mg Documented by: Medical Necessity - Tobacco Use Smoking Status: Current every day smoker Tobacco Use: Cigarettes Assessment/Plan All Active Problems History of gastroesophageal reflux (GERD) (Acute) Subcutaneous emphysema (Acute) Ribs, multiple fractures (Acute) Pneumothorax on right (Acute) Soft tissue swelling (Acute) #1 right pneumothorax secondary to multiple right rib fractures-patient is stable at this time and is on low-flow nasal cannula oxygen. #2 multiple right rib fractures-seventh eighth and ninth ribs and continue oral pain medication #3 essential hypertension-patient's blood pressure is improved today, keep patient on present medications #4 subcutaneous emphysema secondary to #1 and 2-this appears to be resolving slowly #5 anemia-etiology unclear at this point, will order a serum iron and TIBC #6 hypokalemia-patient will receive potassium replacement #7 elevated liver enzymes-probably secondary to chronic alcohol intake-patient shows no signs of going through alcoholic withdrawal at this time Inpatient E&M: [id number] Subs Hosp L2
[2019-12-20 17:41] LABS: Iron 41 ug/dL (50-170); Iron Binding Capacity,Total 381 ug/dL (250-450); PERCENT IRON SATURATION 10.8 % (15.0-55.0)
[2019-12-20] MEDS: traZODone 50 MG Tablet 150 MG PO (20:48)
[2019-12-21] VITALS (15 sets, daily range): BP systolic 106–132; BP diastolic 58–75; PULSE 69–94; RESP 16–20; TEMP 36.6–36.9; O2SAT 90–96
[2019-12-21 05:45] LABS: Anion Gap 8 (5-15); BUN 15 mg/dL (7-18); BUN/Creat Ratio 22.5 RATIO (10-20); Calcium,Total 8.7 mg/dL (8.5-10.1); Chloride 102 mmol/L (98-107); Creatinine, Serum 0.67 mg/dL (0.55-1.02); EST Glomerular Filtration Rate 98 mL/min (>60); Est Glom Filt Rate - Afr Amer 119 mL/min (>60); Estimated Creatinine Clearance 89.86 ml/min; Glucose 100 mg/dL (74-106); Sodium Level 135 mmol/L (136-145)
[2019-12-21] MEDS: oxyCODONE 5 MG Tablet PO ×5 (06:21→23:25)
--- NOTE | 2019-12-21 08:10 | PN.SURG_ITS ---
Patient Problems: Active and Suspected Problems Subcutaneous emphysema (Acute) Ribs, multiple fractures (Acute) Pneumothorax on right (Acute) Minuscule at right anterior base. Soft tissue swelling (Acute) Of head and neck area Subjective: patient feeling more uncomfortable from rib fractures - Physical Exam Vitals/I&O's: Vital Signs Temp Pulse Resp BP Pulse Ox 97.9 F 76 18 109/58 L 90 12/21/19 03:00 12/21/19 06:49 12/21/19 03:00 12/21/19 03:00 12/21/19 07:30 Oxygen Flow Rate (L/min) 3 Oxygen Delivery Method Nasal Cannula Weight: 89.6 kg Body Mass Index (BMI) 31.2 Intake and Output for Last 24 Hours 12/19/19 12/20/19 12/21/19 23:59 23:59 23:59 Intake Total 3163.75 / 3163.75 3165.00 / 3165.00 150 / 150 Output Total 1150 / 1150 251 / 251 220 / 220 Balance / 2914.00 / 2914.00 -70 / -70 General: Alert, Oriented x3 Oral: Moist Mucosa Neck: Supple Lungs: Normal air movement, - - no air leak, dressing intact at right chest site Abdomen: Soft Laboratory Results 12/20/19 04:25: Iron 41 L, TIBC 381, Iron Saturation 10.8 L 12/21/19 05:03: Sodium 135 L, Potassium 4.0, Chloride 102, Carbon Dioxide 25.0, Anion Gap 8, BUN 15, Creatinine 0.67, Estim Creat Clear Calc 89.86, Est GFR (MDRD) Af Amer 119, Est GFR (MDRD) Non-Af 98, BUN/Creatinine Ratio 22.5 H, Glucose 100, Calcium 8.7 Current Medications Acetaminophen (Tylenol) 650 mg PO Q6H PRN PRN PRN Reason: Pain Score 1-10/Temp > 100.7 F Last Admin: 12/20/19 21:55 Dose: 650 mg Documented by: Albuterol Sulfate (Ventolin Aerosols) 2.5 mg INHALATION Q2H PRN PRN PRN Reason: SOB/Wheezing Amlodipine Besylate (Norvasc) 10 mg PO DAILY [facility] Last Admin: 12/20/19 10:19 Dose: 10 mg Documented by: Citalopram Hydrobromide (Celexa) 20 mg PO DAILY [facility] Last Admin: 12/20/19 10:16 Dose: 20 mg Documented by: Enoxaparin Sodium (Lovenox) 40 mg SC DAILY [facility] Last Admin: 12/20/19 10:17 Dose: 40 mg Documented by: Hydrochlorothiazide () 12.5 mg PO DAILY [facility] Last Admin: 12/20/19 10:16 Dose: 12.5 mg Documented by: Sodium Chloride () 1,000 mls @ 75 mls/hr IV .[id number] [facility] Last Admin: 12/20/19 21:54 Dose: 75 mls/hr Documented by: Lisinopril (Zestril) 20 mg PO DAILY [facility] Last Admin: 12/20/19 10:15 Dose: 20 mg Documented by: Norethindrone (Dione) 0.35 mg PO DAILY [facility] Last Admin: 12/20/19 10:16 Dose: 0.35 mg Documented by: Nutritional Formula (Lactose Free) (Ensure Enlive) 120 ml PO 4X/DAY [facility] Last Admin: 12/20/19 20:46 Dose: 120 ml Documented by: Oxycodone HCl (Oxyir) 10 - 15 mg PO Q4H PRN PRN PRN Reason: Pain Score 6-10/10 Last Admin: 12/21/19 06:21 Dose: 15 mg Documented by: Pantoprazole Sodium (Protonix) 20 mg PO DAILY [facility] Last Admin: 12/20/19 10:16 Dose: 20 mg Documented by: Prochlorperazine Edisylate (Compazine Iv) 5 mg IV Q4H PRN PRN PRN Reason: Breakthrough Nausea/Vomiting Senna (Senokot) 2 tablet PO BID PRN PRN PRN Reason: CONSTIPATION Sodium Chloride () 10 - 40 ml IV UD PRN PRN Reason: SALINE FLUSH Last Admin: 12/20/19 01:30 Dose: 20 ml Documented by: Trazodone HCl (Desyrel) 150 mg PO QHS [facility] Last Admin: 12/20/19 20:48 Dose: 150 mg Documented by: Medical Necessity - Tobacco Use Smoking Status: Current every day smoker Tobacco Use: Cigarettes Assessment/Plan All Active Problems History of gastroesophageal reflux (GERD) (Acute) Subcutaneous emphysema (Acute) Ribs, multiple fractures (Acute) Pneumothorax on right (Acute) Soft tissue swelling (Acute) Impression: multiple right rib fractures resulting in pneumotho rax/pneumomediastinum/subcutaneous emphysema - clinically improving Plan: Place thoracic catheter to water seal (d/c wall suction) Encourage incentive spirometry Will leave patient on water seal for 24 hours, will reassess tomorrow for consideration for removal of thoracic catheter and discharge
[2019-12-21] MEDS: NORETHINDRONE 0.35 MG TABLET PO (08:54)
[2019-12-21] MEDS: Citalopram 20 MG Tablet PO (08:54)
[2019-12-21] MEDS: hydroCHLOROthiazide 12.5mg 12.5 MG PO (08:54)
[2019-12-21] MEDS: Pantoprazole Sodium 20 MG Tablet PO (08:55)
[2019-12-21] MEDS: Enoxaparin 40 MG/0.4 ML Syringe SC (08:55)
[2019-12-21] MEDS: amLODIPine 10 MG Tablet PO (08:55)
[2019-12-21] MEDS: Lisinopril 20 MG Tablet PO (08:56)
[2019-12-21] MEDS: Acetaminophen 325 MG Tablet 650 MG PO ×3 (08:58→22:10)
[2019-12-21] MEDS: 0.9% Normal Saline 1,000 ML 75 ML IV ×2 (10:04→23:28)
--- NOTE | 2019-12-21 10:19 | PCM.PN.PUL ---
Patient Problems: Active and Suspected Problems Subcutaneous emphysema (Acute) Ribs, multiple fractures (Acute) Pneumothorax on right (Acute) Minuscule at right anterior base. Soft tissue swelling (Acute) Of head and neck area Subjective: Patient did well overnight. Patient reports poor sleep overnight secondary to rib fractures. Patient denies any hemoptysis or change in respiratory status. Patient is coughing some clear sputum intermittently. - Physical Exam Vitals/I&O's: Vital Signs Temp Pulse Resp BP Pulse Ox 36.8 C 89 20 H 122/73 H 92 12/21/19 08:52 12/21/19 08:52 12/21/19 08:52 12/21/19 08:52 12/21/19 08:52 Oxygen Flow Rate (L/min) 2 Oxygen Delivery Method Nasal Cannula Weight: 89.6 kg Body Mass Index (BMI) 31.2 Intake and Output for Last 24 Hours 12/19/19 12/20/19 12/21/19 23:59 23:59 23:59 Intake Total 3163.75 / 3163.75 3165.00 / 3165.00 1061.25 / 1061.25 Output Total 1150 / 1150 251 / 251 220 / 220 Balance / 2914.00 / 2914.00 841.25 / 841.25 General: Alert, Oriented x3, Cooperative, No apparent distress, Well developed, Well nourished, - - Obese. Speaking in full sentences. HEENT: Atraumatic, PERRLA, EOMI, Normocephalic, - - Subcu emphysema of the eyelids is improving, but still significant Oral: Moist Mucosa, No Gingival or Mucosal Lesions/ Ulcerations Neck: Supple, No JVD, No Nodes, Trachea Midline Lungs: No rhonchi, No wheeze, No rales, Diminished, - - Crepitus throughout the chest Cardiovascular: Regular rate, Regular Rhythm, Normal S1, Normal S2, No murmurs, Rubs - Possible cardiac rub versus subcu emphysema, No Gallop Abdomen: Bowel Sounds Present, Soft, Non Tender, Non-Distended Extremities: No clubbing, No cyanosis, No edema, Capillary Refill Less than 3 Seconds Skin: - - Some improvement in crepitus intensity, without extension of findings Musculoskeletal: No Tenderness to Palpation of Joints or Extremities, No Muscle Wasting Lymphatic: No Cervical, Supraclavicular, or Inguinal Adenopathy Neurological: Cranial nerves II-XII grossly intact, Neuro grossly intact, Motor Exam 5/5 strength throughout Psych/Mental Status: Alert and oriented to time, place, person, mood and affect Laboratory Results 12/20/19 04:25: Iron 41 L, TIBC 381, Iron Saturation 10.8 L 12/21/19 05:03: Sodium 135 L, Potassium 4.0, Chloride 102, Carbon Dioxide 25.0, Anion Gap 8, BUN 15, Creatinine 0.67, Estim Creat Clear Calc 89.86, Est GFR (MDRD) Af Amer 119, Est GFR (MDRD) Non-Af 98, BUN/Creatinine Ratio 22.5 H, Glucose 100, Calcium 8.7 Current Medications Acetaminophen (Tylenol) 650 mg PO Q6H PRN PRN PRN Reason: Pain Score 1-10/Temp > 100.7 F Last Admin: 12/21/19 08:58 Dose: 650 mg Documented by: Albuterol Sulfate (Ventolin Aerosols) 2.5 mg INHALATION Q2H PRN PRN PRN Reason: SOB/Wheezing Amlodipine Besylate (Norvasc) 10 mg PO DAILY [facility] Last Admin: 12/21/19 08:55 Dose: 10 mg Documented by: Citalopram Hydrobromide (Celexa) 20 mg PO DAILY [facility] Last Admin: 12/21/19 08:54 Dose: 20 mg Documented by: Enoxaparin Sodium (Lovenox) 40 mg SC DAILY [facility] Last Admin: 12/21/19 08:55 Dose: 40 mg Documented by: Hydrochlorothiazide () 12.5 mg PO DAILY [facility] Last Admin: 12/21/19 08:54 Dose: 12.5 mg Documented by: Sodium Chloride () 1,000 mls @ 75 mls/hr IV .[id number] [facility] Last Admin: 12/21/19 10:04 Dose: 75 mls/hr Documented by: Lisinopril (Zestril) 20 mg PO DAILY [facility] Last Admin: 12/21/19 08:56 Dose: 20 mg Documented by: Norethindrone (Dione) 0.35 mg PO DAILY [facility] Last Admin: 12/21/19 08:54 Dose: 0.35 mg Documented by: Nutritional Formula (Lactose Free) (Ensure Enlive) 120 ml PO 4X/DAY [facility] Last Admin: 12/21/19 08:54 Dose: Not Given Documented by: Oxycodone HCl (Oxyir) 10 - 15 mg PO Q4H PRN PRN PRN Reason: Pain Score 6-10/10 Last Admin: 12/21/19 06:21 Dose: 15 mg Documented by: Pantoprazole Sodium (Protonix) 20 mg PO DAILY [facility] Last Admin: 12/21/19 08:55 Dose: 20 mg Documented by: Prochlorperazine Edisylate (Compazine Iv) 5 mg IV Q4H PRN PRN PRN Reason: Breakthrough Nausea/Vomiting Senna (Senokot) 2 tablet PO BID PRN PRN PRN Reason: CONSTIPATION Sodium Chloride () 10 - 40 ml IV UD PRN PRN Reason: SALINE FLUSH Last Admin: 12/20/19 01:30 Dose: 20 ml Documented by: Trazodone HCl (Desyrel) 150 mg PO QHS [facility] Last Admin: 12/20/19 20:48 Dose: 150 mg Documented by: Medical Necessity - Tobacco Use Smoking Status: Current every day smoker Tobacco Use: Cigarettes Assessment/Plan All Active Problems History of gastroesophageal reflux (GERD) (Acute) Subcutaneous emphysema (Acute) Ribs, multiple fractures (Acute) Pneumothorax on right (Acute) Soft tissue swelling (Acute) RECOMMENDATIONS: 1. Continue chest tube management per surgery 2. Continue albuterol and pulmicort 3. Monitor on waterseal. Reapply suction if emphysema worsens IMPRESSIONS: 1. Airway compromise secondary to extensive subcutaneous emphysema secondary to multiple right-sided rib fractures with pneumothorax Patient has a chest tube in place. CT scan shows extensive subcutaneous emphysema, pneumomediastinum and small right-sided pneumothorax. Patient does have 1 of 3 rib fracture that appears to be moderately displaced. Okay to use waterseal from my perspective. Continue to monitor airway closely. Patient does not have any stridor or other signs of airway compromise at this time. Patient does have extensive emphysematous changes. Continue BD and pulmicort for now. 2. COPD Exact quantification is unclear at this time. Patient does have extensive emphysematous changes noted on CT scan of the chest. Patient continues to require chest tube in my opinion as she still has significant subcutaneous emphysema. Patient does not have a leak at this time. Patient will need to wait 3 to 6 months before having any pulmonary function test to formally evaluate for COPD 3. Suspected alcoholic hepatitis/Long/GERD/anxiety/depression/morbid obesity Complicates care, management, recovery and prognosis. Patient with significant alcohol level on presentation. We will have to watch patient closely for possible withdrawal. Low clinical threshold for initiation of CIWA protocol. Inpatient E&M: [id number] [facility] Hosp L2
--- NOTE | 2019-12-21 10:50 | PCM.PN.HOSP ---
Patient Problems: Active and Suspected Problems Subcutaneous emphysema (Acute) Ribs, multiple fractures (Acute) Pneumothorax on right (Acute) Minuscule at right anterior base. Soft tissue swelling (Acute) Of head and neck area Subjective: Breathing little bit easier, and says that this is welling from the subcutaneous emphysema has improved significantly. She still having significant right-sided chest pain from the rib fractures. Vitals/I&O's: Vital Signs Temp Pulse Resp BP Pulse Ox 98.3 F 89 20 H 122/73 H 92 12/21/19 08:52 12/21/19 08:52 12/21/19 08:52 12/21/19 08:52 12/21/19 08:52 Oxygen Flow Rate (L/min) 2 Oxygen Delivery Method Nasal Cannula Weight: 197 lb 8.547 oz Body Mass Index (BMI) 31.2 Intake and Output for Last 24 Hours 12/19/19 12/20/19 12/21/19 23:59 23:59 23:59 Intake Total 3163.75 / 3163.75 3165.00 / 3165.00 1061.25 / 1061.25 Output Total 1150 / 1150 251 / 251 220 / 220 Balance / 2914.00 / 2914.00 841.25 / 841.25 General: Alert, Oriented x3, Cooperative, No apparent distress HEENT: Atraumatic, PERRLA, EOMI, Normocephalic Oral: Moist Mucosa Neck: Supple, No JVD Lungs: Normal air movement, Diminished, - - Coarse breath sounds on the right compared to the left with chest wall crepitus Cardiovascular: Regular rate, Regular Rhythm, Normal S1, Normal S2, No murmurs Abdomen: Soft, Non Tender, Non-Distended, No Hepato-splenomegaly Extremities: No edema, Capillary Refill Less than 3 Seconds Skin: No rashes, No breakdown Neurological: Neuro grossly intact, Sensory exam intact to light touch and pain Psych/Mental Status: Normal Affect, Appropriate Laboratory Results 12/20/19 04:25: Iron 41 L, TIBC 381, Iron Saturation 10.8 L 12/21/19 05:03: Sodium 135 L, Potassium 4.0, Chloride 102, Carbon Dioxide 25.0, Anion Gap 8, BUN 15, Creatinine 0.67, Estim Creat Clear Calc 89.86, Est GFR (MDRD) Af Amer 119, Est GFR (MDRD) Non-Af 98, BUN/Creatinine Ratio 22.5 H, Glucose 100, Calcium 8.7 Current Medications Acetaminophen (Tylenol) 650 mg PO Q6H PRN PRN PRN Reason: Pain Score 1-10/Temp > 100.7 F Last Admin: 12/21/19 08:58 Dose: 650 mg Documented by: Albuterol Sulfate (Ventolin Aerosols) 2.5 mg INHALATION Q2H PRN PRN PRN Reason: SOB/Wheezing Amlodipine Besylate (Norvasc) 10 mg PO DAILY [facility] [place] Last Admin: 12/21/19 08:55 Dose: 10 mg Documented by: Citalopram Hydrobromide (Celexa) 20 mg PO DAILY [facility] Last Admin: 12/21/19 08:54 Dose: 20 mg Documented by: Enoxaparin Sodium (Lovenox) 40 mg SC DAILY [facility] Last Admin: 12/21/19 08:55 Dose: 40 mg Documented by: Hydrochlorothiazide () 12.5 mg PO DAILY [facility] [place] Last Admin: 12/21/19 08:54 Dose: 12.5 mg Documented by: Sodium Chloride () 1,000 mls @ 75 mls/hr IV .[id number] [facility] Last Admin: 12/21/19 10:04 Dose: 75 mls/hr Documented by: Lisinopril (Zestril) 20 mg PO DAILY [facility] [place] Last Admin: 12/21/19 08:56 Dose: 20 mg Documented by: Norethindrone (Dione) 0.35 mg PO DAILY [facility] [place] Last Admin: 12/21/19 08:54 Dose: 0.35 mg Documented by: Nutritional Formula (Lactose Free) (Ensure Enlive) 120 ml PO 4X/DAY [facility] [place] Last Admin: 12/21/19 08:54 Dose: Not Given Documented by: Oxycodone HCl (Oxyir) 10 - 15 mg PO Q4H PRN PRN PRN Reason: Pain Score 6-10/10 Last Admin: 12/21/19 10:25 Dose: 15 mg Documented by: Pantoprazole Sodium (Protonix) 20 mg PO DAILY [facility] [place] Last Admin: 12/21/19 08:55 Dose: 20 mg Documented by: Prochlorperazine Edisylate (Compazine Iv) 5 mg IV Q4H PRN PRN PRN Reason: Breakthrough Nausea/Vomiting Senna (Senokot) 2 tablet PO BID PRN PRN PRN Reason: CONSTIPATION Sodium Chloride () 10 - 40 ml IV UD PRN PRN Reason: SALINE FLUSH Last Admin: 12/20/19 01:30 Dose: 20 ml Documented by: Trazodone HCl (Desyrel) 150 mg PO QHS [facility] [place] Last Admin: 12/20/19 20:48 Dose: 150 mg Documented by: STROKE Vital Signs/Narrative: Vital Signs Temp Pulse Resp BP Pulse Ox 12/21/19 08:52 98.3 F 89 20 H 122/73 H 92 12/21/19 07:30 90 Medical Necessity - Tobacco Use Smoking Status: Current every day smoker Tobacco Use: Cigarettes Assessment/Plan All Active Problems History of gastroesophageal reflux (GERD) (Acute) Subcutaneous emphysema (Acute) Ribs, multiple fractures (Acute) Pneumothorax on right (Acute) Soft tissue swelling (Acute) 1. Right-sided pneumothorax secondary to multiple right rib fractures with subcutaneous emphysema/COPD -Chest tube is on waterseal, will leave for 24 hours and reevaluate possible discharge in the morning -Continue with p.o. pain medication, discussed with her that there is no great options for managing her rib pain given the fractures -Discussed the importance of deep breathing as shallow breaths can lead to atelectasis and potential pneumonia -CT scan did demonstrate evidence of COPD however cannot find any previous PFTs -Continue with Anuj -Appreciate surgery and pulmonology assistance 2. Anxiety/depression/suspected alcoholic hepatitis -Stable -Continue citalopram -LFTs are stable, GGT was obtained and was elevated at 370 -Continue to have outpatient follow-up 3. HTN -She did have elevated blood pressure on admission into the 180 systolic, this could be secondary to pain -Currently on HCTZ/lisinopril and Norvasc which was started here, will continue for now. 4. Iron deficiency anemia -Iron level is 41 with a normal TIBC and a low iron saturation -We will discuss if she has had a colonoscopy, and if not she will need one as an outpatient, she denies any bloody stools DVT: Lovenox Inpatient E&M: 47301 Subs Hosp L2
[2019-12-21] MEDS: Albuterol 2.5 MG/3 ML VIAL.NEB. INHALATION ×2 (13:31→18:46)
[2019-12-21] MEDS: Budesonide Respules 0.5 MG/2 ML AMPUL.NEB. INHALATION (18:46)
[2019-12-21] MEDS: traZODone 50 MG Tablet 150 MG PO (22:10)
[2019-12-22] VITALS (7 sets, daily range): BP systolic 109–124; BP diastolic 50–68; PULSE 78–94; RESP 18–20; TEMP 36.7; O2SAT 84–94
[2019-12-22] MEDS: Budesonide Respules 0.5 MG/2 ML AMPUL.NEB. INHALATION (07:40)
[2019-12-22] MEDS: Albuterol 2.5 MG/3 ML VIAL.NEB. INHALATION ×2 (07:40→14:10)
[2019-12-22] MEDS: hydroCHLOROthiazide 12.5mg 12.5 MG PO (08:38)
[2019-12-22] MEDS: Lisinopril 20 MG Tablet PO (08:38)
[2019-12-22] MEDS: Citalopram 20 MG Tablet PO (08:38)
[2019-12-22] MEDS: Enoxaparin 40 MG/0.4 ML Syringe SC (08:38)
[2019-12-22] MEDS: oxyCODONE 5 MG Tablet PO ×2 (08:38→12:55)
[2019-12-22] MEDS: amLODIPine 10 MG Tablet PO (08:38)
[2019-12-22] MEDS: NORETHINDRONE 0.35 MG TABLET PO (08:38)
[2019-12-22] MEDS: Pantoprazole Sodium 20 MG Tablet PO (08:38)
--- NOTE | 2019-12-22 11:03 | PN.SURG_ITS ---
Patient Problems: Active and Suspected Problems Subcutaneous emphysema (Acute) Ribs, multiple fractures (Acute) Pneumothorax on right (Acute) Minuscule at right anterior base. Soft tissue swelling (Acute) Of head and neck area Subjective: patient slowly improving, still with same right sided chest pain secondary to rib fractures especially with movement - Physical Exam Vitals/I&O's: Vital Signs Temp Pulse Resp BP Pulse Ox 98.0 F 78 20 H 124/68 H 93 12/22/19 08:30 12/22/19 08:30 12/22/19 08:30 12/22/19 08:30 12/22/19 08:30 Oxygen Flow Rate (L/min) 4 Oxygen Delivery Method Nasal Cannula Weight: 89.6 kg Body Mass Index (BMI) 31.2 Intake and Output for Last 24 Hours 12/20/19 12/21/19 12/22/19 23:59 23:59 23:59 Intake Total 3165.00 / 3165.00 2658.25 / 2898.25 240 / 240 Output Total 251 / 251 225 / 225 Balance 2914.00 / 2914.00 2433.25 / 2673.25 240 / 240 General: Alert, Oriented x3 Oral: Moist Mucosa Neck: Supple Lungs: Normal air movement, - - chest tube removed without difficulty Current Medications Acetaminophen (Tylenol) 650 mg PO Q6H PRN PRN PRN Reason: Pain Score 1-10/Temp > 100.7 F Last Admin: 12/21/19 22:10 Dose: 650 mg Documented by: Albuterol Sulfate (Ventolin Aerosols) 2.5 mg INHALATION Q2H PRN PRN PRN Reason: SOB/Wheezing Albuterol Sulfate (Ventolin Aerosols) 2.5 mg INHALATION Q6HWA.RT [facility] Last Admin: 12/22/19 07:40 Dose: 2.5 mg Documented by: Amlodipine Besylate (Norvasc) 10 mg PO DAILY [facility] Last Admin: 12/22/19 08:38 Dose: 10 mg Documented by: Budesonide (Pulmicort Aerosol) 0.5 mg INHALATION Q12H.RT [facility] Last Admin: 12/22/19 07:40 Dose: 0.5 mg Documented by: Citalopram Hydrobromide (Celexa) 20 mg PO DAILY [facility] Last Admin: 12/22/19 08:38 Dose: 20 mg Documented by: Enoxaparin Sodium (Lovenox) 40 mg SC DAILY [facility] Last Admin: 12/22/19 08:38 Dose: 40 mg Documented by: Hydrochlorothiazide () 12.5 mg PO DAILY [facility] Last Admin: 12/22/19 08:38 Dose: 12.5 mg Documented by: Sodium Chloride () 1,000 mls @ 75 mls/hr IV .[id number] [facility] Last Admin: 12/21/19 23:28 Dose: 75 mls/hr Documented by: Lidocaine (Lidoderm Patch) 1 patch TOPICAL DAILY [facility] Lisinopril (Zestril) 20 mg PO DAILY [facility] Last Admin: 12/22/19 08:38 Dose: 20 mg Documented by: Norethindrone (Dione) 0.35 mg PO DAILY [facility] Last Admin: 12/22/19 08:38 Dose: 0.35 mg Documented by: Nutritional Formula (Lactose Free) (Ensure Enlive) 120 ml PO 4X/DAY [facility] Last Admin: 12/22/19 08:38 Dose: 120 ml Documented by: Oxycodone HCl (Oxyir) 10 - 15 mg PO Q4H PRN PRN PRN Reason: Pain Score 6-10/10 Last Admin: 12/22/19 08:38 Dose: 10 mg Documented by: Pantoprazole Sodium (Protonix) 20 mg PO DAILY [facility] Last Admin: 12/22/19 08:38 Dose: 20 mg Documented by: Prochlorperazine Edisylate (Compazine Iv) 5 mg IV Q4H PRN PRN PRN Reason: Breakthrough Nausea/Vomiting Senna (Senokot) 2 tablet PO BID PRN PRN PRN Reason: CONSTIPATION Sodium Chloride () 10 - 40 ml IV UD PRN PRN Reason: SALINE FLUSH Last Admin: 12/20/19 01:30 Dose: 20 ml Documented by: Trazodone HCl (Desyrel) 150 mg PO QHS [facility] Last Admin: 12/21/19 22:10 Dose: 150 mg Documented by: Medical Necessity - Tobacco Use Smoking Status: Current every day smoker Tobacco Use: Cigarettes Assessment/Plan All Active Problems History of gastroesophageal reflux (GERD) (Acute) Subcutaneous emphysema (Acute) Ribs, multiple fractures (Acute) Pneumothorax on right (Acute) Soft tissue swelling (Acute) Impression: multiple right rib fractures resulting in pneumothorax/pneumomediastinum/subcutaneous emphysema - clinically improving Plan: Have removed thoracic catheter can d/c to home from surgical standpoint trial of lidocaine patch for pain control
[2019-12-22] MEDS: Lidocaine 5% Patch 1 PATCH TOPICAL (11:53)
--- NOTE | 2019-12-22 12:34 | RAD_ITS ---
STUDY: X-RAY CHEST REASON FOR EXAM: Female, 54 years old. POST CHEST TUBE REMOVAL - RT SIDE TECHNIQUE: Single AP portable view of the chest. COMPARISON: Comparison is made with prior examination dated December 19, 2019. FINDINGS: The small-caliber right-sided chest tube has been removed. EKG electrodes are seen. There is no evidence of pneumothorax. Persistent diffuse subcutaneous emphysema overlying the anterior chest and upper abdomen more prominent on the right side. There has been improvement as compared to prior study. Persistent mild degree of increased markings at the lung bases suggestive of atelectasis. Normal size heart. Normal mediastinum and renetta. Normal visualized pulmonary arteries. Normal visualized aortic arch and descending thoracic aorta. Normal visualized thoracic spine. Normal visualized ribs, clavicles, and shoulders. There is no demonstrated abnormality of the visualized soft tissue structures of the upper abdomen. RAD/Chest 1 View (Portable) IMPRESSION: Status post removal of the small caliber chest tube in the right hemithorax. Persistent diffuse subcutaneous emphysema as described. This has improved. No evidence of pneumothorax. Electronically Signed: Devin Avalos, at 13:48 EDT , Service support ,
[2019-12-22] MEDS: Senna Tablet 2 TABLET PO (12:57)
--- NOTE | 2019-12-22 14:39 | CASEMGMT ---
SW spoke with patient regarding needing O2 and not having insurance. Patient said she received papers from her employer regarding [employer] insurance. She plans on completing this paperwork and going on [employer]. SW asked her if she would be able to afford $165 for O2 until her insurance information was worked out. She said she can afford this. RISSA told her the $165 is [employer]'s cost and that is for everything for a month and she was fine going through them. RISSA notified RN LINDA. Ember [employer]
--- NOTE | 2019-12-22 14:48 | CASEMGMT ---
Pt qualifies for 3 liters home oxygen at this time. Per Ke KWOK, pt states does not currently have insurance but has information at home to get [employer] as she lost her job in October 2019, but pt plans to get a new job as well. Per Ke KWOK, pt states should be able to afford the cost of home oxygen for at least the first month and would prefer [employer] at this time. Dr. Spain updated on all, voices understanding and referral faxed to [facility]. Call to Brian Kramer to notify of referral at this time and that pt to be discharged today, voices understanding. Ruth Ann JENSEN CM
--- NOTE | 2019-12-22 15:05 | DCINST_ITS ---
Discharge Diet: No Restrictions Discharge Activity: Return to Normal Activity, May not drive while taking narcotic pain medications. Lifting Restrictions: no lifting greater than 10 pounds until pain is minimal Additional Dressing/Incision Instructions:: Leave dressing in place until at least Thursday Allergies/Adverse Reactions: Allergies hydroxychloroquine [From Plaquenil] Allergy (Verified 12/18/19 22:54) Itching lorazepam [From Ativan] Allergy (Verified 12/18/19 22:54) Itching Medications to take at Discharge Norethindrone 1 tab PO DAILY 06/28/19 Hydroxyzine Pamoate 50 mg PO BID 11/01/19 Trazodone HCl 150 mg PO QHS PRN 11/01/19 Citalopram [Celexa] 20 mg PO DAILY 12/18/19 Oxycodone HCl/Acetaminophen [Percocet 5-325] 1 tab PO Q6H PRN PRN 3 Days #12 tab 12/18/19 Fexofenadine/Pseudoephedrine [Shilpa-D 24 Hour Tablet] 1 ea PO DAILY 12/19/19 Fluticasone/Salmeterol [Advair Hfa 115-21 Mcg Inhaler] 1 - 2 puff INHALATION DAILY 12/19/19 Omeprazole Magnesium [Prilosec Otc] 20 mg PO DAILY 12/19/19 Amlodipine [Norvasc] 10 mg PO DAILY #30 tab 12/22/19 Lidocaine [Lidoderm Patch] 1 patch TOPICAL DAILY #10 patch 12/22/19 Lidocaine [Lidoderm Patch] 1 patch TOPICAL DAILY 10 Days #10 patch 12/22/19 Lisinopril [Zestril] 20 mg PO DAILY #30 tab 12/22/19 hydroCHLOROthiazide [Hydrochlorothiazide] 12.5 mg PO DAILY #30 cap 12/22/19 The following prescriptions were given: hydroCHLOROthiazide [Hydrochlorothiazide] 12.5 mg PO DAILY #30 cap Transmission Status: Received by [facility] Lidocaine [Lidoderm Patch] 1 patch TOPICAL DAILY 10 Days #10 patch Transmission Status: Received by [facility]/pharmacy #[id number] Lidocaine [Lidoderm Patch] 1 patch TOPICAL DAILY #10 patch Transmission Status: Received by [facility] Amlodipine [Norvasc] 10 mg PO DAILY #30 tab Transmission Status: Received by [facility] Lisinopril [Zestril] 20 mg PO DAILY #30 tab Transmission Status: Received by [facility] Primary Care Physician: Marium Alxeis MD [Primary Care Provider] - Test Results: Test results from this visit will be discussed in further detail at your follow- up appointment, if applicable. Please Follow Up With: Lauryn Bender MD - When: will call for televisit
--- NOTE | 2019-12-22 15:48 | DCINST_ITS ---
- Discharge Diagnoses Current Active Problems: Current Active and Chronic Problems Subcutaneous emphysema (Acute) Ribs, multiple fractures (Acute) Pneumothorax on right (Acute) Minuscule at right anterior base. Soft tissue swelling (Acute) Of head and neck area You will use the following diet at home:: Regular Your food should be the consistency of: Regular Your liquids should be the consistency of: Regular/Thin Discharge Activity: Return to Normal Activity, May not drive while taking narcotic pain medications. Call your doctor if you observe: Fever of 101 or Higher, Shortness of breath, Dizziness, Fainting spells, Swelling in the ankles, Chest pain, Increased palpitations (irregular heartbeat) Additional Dressing/Incision Instructions:: Leave dressing in place until at least Thursday Allergies/Adverse Reactions: Allergies hydroxychloroquine [From Plaquenil] Allergy (Verified 12/18/19 22:54) Itching lorazepam [From Ativan] Allergy (Verified 12/18/19 22:54) Itching Medications to take at Discharge Norethindrone 1 tab PO DAILY 06/28/19 Hydroxyzine Pamoate 50 mg PO BID 11/01/19 Trazodone HCl 150 mg PO QHS PRN 11/01/19 Citalopram [Celexa] 20 mg PO DAILY 12/18/19 Oxycodone HCl/Acetaminophen [Percocet 5-325] 1 tab PO Q6H PRN PRN 3 Days #12 tab 12/18/19 Fexofenadine/Pseudoephedrine [Shilpa-D 24 Hour Tablet] 1 ea PO DAILY 12/19/19 Fluticasone/Salmeterol [Advair Hfa 115-21 Mcg Inhaler] 1 - 2 puff INHALATION DAILY 12/19/19 Omeprazole Magnesium [Prilosec Otc] 20 mg PO DAILY 12/19/19 Amlodipine [Norvasc] 10 mg PO DAILY #30 tab 12/22/19 Lidocaine [Lidoderm Patch] 1 patch TOPICAL DAILY #10 patch 12/22/19 Lidocaine [Lidoderm Patch] 1 patch TOPICAL DAILY 10 Days #10 patch 12/22/19 Lisinopril [Zestril] 20 mg PO DAILY #30 tab 12/22/19 hydroCHLOROthiazide [Hydrochlorothiazide] 12.5 mg PO DAILY #30 cap 12/22/19 The following prescriptions were given: hydroCHLOROthiazide [Hydrochlorothiazide] 12.5 mg PO DAILY #30 cap Transmission Status: Received by [facility] Lidocaine [Lidoderm Patch] 1 patch TOPICAL DAILY 10 Days #10 patch Transmission Status: Received by [facility]/pharmacy #[id number] Lidocaine [Lidoderm Patch] 1 patch TOPICAL DAILY #10 patch Transmission Status: Received by [facility] Amlodipine [Norvasc] 10 mg PO DAILY #30 tab Transmission Status: Received by [facility] Lisinopril [Zestril] 20 mg PO DAILY #30 tab Transmission Status: Received by [facility] Primary Care Physician: Marium Alexis MD [Primary Care Provider] - Please follow up with your Primary Care Physician in: Televisit Test Results: Test results from this visit will be discussed in further detail at your follow- up appointment, if applicable. Please Follow Up With: Lauryn Bender MD - When: will call for televisit
--- NOTE | 2019-12-22 16:09 | PCM.DC.SUM ---
Discharge Date and Diagnosis - Problem List Patient Problems: Active and Suspected Problems Subcutaneous emphysema (Acute) Ribs, multiple fractures (Acute) Pneumothorax on right (Acute) Minuscule at right anterior base. Soft tissue swelling (Acute) Of head and neck area Date of Admission: 12/19/19 Date of Discharge: 12/22/19 - Primary Discharge Diagnosis Active and Suspected Problems Subcutaneous emphysema (Acute) Ribs, multiple fractures (Acute) Pneumothorax on right (Acute) Minuscule at right anterior base. Soft tissue swelling (Acute) Of head and neck area - Secondary Discharge Diagnosis Chronic Problems History of COPD (Chronic) Hospital Course and Treatment Imaging Results: CXR: IMPRESSION: Worsening subcutaneous emphysema throughout the chest with also pneumomediastinum. Trace right pneumothorax is not definitely visualized. CT Chest: IMPRESSION: Interval increase in right pneumothorax which remains small in size. Worsening diffuse chest wall subcutaneous emphysema and pneumomediastinum. Probable right lung base atelectasis. CXR: IMPRESSION: Status post removal of the small caliber chest tube in the right hemithorax. Persistent diffuse subcutaneous emphysema as described. This has improved. No evidence of pneumothorax. Consults: General Surgery Pulmonology Operations: None Procedures: - - Chest Tube Summary of Care Provided: Per HPI: The patient is a 54 year old F with history of COPD came to ER the morning on 12/17 after she had fallen and hurt her right lower chest about 3 days ago prior to admission. His right sided rib pain and lower chest progressively getting worse along with mild shortness of breath. At that time chest x-ray followed by CT chest were done. Chest x-ray and CT chest were independently reviewed. It shows severe subcutaneous emphysema throughout the right chest wall extending up to the neck, thoracic inlet up to base of the skull. Subcutaneous emphysema extending posteriorly along the back as far as mid abdomen. Fracture of right seventh eighth and ninth ribs. Minuscule right pneumothorax at anterior right lung base. No focal infiltrate or atelectasis. Patient was sent home after discussion with the restrictive preparation operator with outpatient follow-up after she bilateral better with ibuprofen. Patient was given morphine with prescription of short course of Percocet. On the same day in the evening, patient came back with swelling of right eyelid. Initially, it was thought she has allergic reaction with morphine and was given IV Solu-Medrol, Benadryl and Pepcid. But this did not improve the swelling but got worse and progressed to left eyelid and generalized facial swelling while she was in the ER. This is also accompanied with mild shortness of breath. Repeat chest x-ray ordered and shows progression of the subcutaneous emphysema in the head and neck region. After that, decided to admit the patient. Basic labs done in the ER is at baseline in acceptable limit except K3.3. Glucose 122. Mildly elevated transaminases, ALT 232, AST 141 she has history of chronic alcohol use with alcohol of 381 on 10/31/2019 and 296 found today. Hospital Course: 1. Right-sided pneumothorax secondary to multiple right rib fractures with subcutaneous emphysema after a fall/COPD not in [id number] female who fell against the side of the bathtub after tripping on the bath mat presenting with chest pain and subcu emphysema. She was found to have multiple right-sided rib fractures as well as a small pneumothorax. She had a chest tube placed which resolved the pneumothorax, she had the chest tube pulled this morning and repeat x-ray later in the afternoon showed continued resolution of the pneumothorax. She has been given a Percocet prescription by the ER physician therefore no further narcotics were provided. She is also discharged on a lidocaine patch. He was instructed she can also take ibuprofen as needed as well but that it is important for her to ambulate. She is requiring 3 L nasal cannula and this is likely due to splinting, shallow breathing, and lack of ambulation. I did discuss with her the importance of not shallow breathing and taking deep breaths and ambulating and she does express understanding. I discussed with her the discharge plan and she states that she would like to go home, she expressed understanding of the risks and benefits of discharge. 2. Anxiety/depression/suspected alcoholic hepatitis-her anxiety and depression is fairly stable and she is fairly well managed with citalopram. She does have a history of alcohol use and LFTs have been chronically stable but elevated, her GGT is also elevated to 370 so she will need to follow-up with her primary care doctor for this issue and possibly follow-up with gastroenterology as an outpatient. 3. Iron deficiency anemia-her iron level during this admission was 41 with a normal TIBC and a low iron saturation with normal ferritin. She has not been having any bloody stools which she has not had a colonoscopy since she turns 50 she will need one as an outpatient for follow-up. Would also recommend a repeat CBC in a few weeks to monitor her hemoglobin level, and possibly start on iron supplementation if necessary. 4. Hypertension-when she presented to the hospital she had blood pressures in the 170s to 180s systolic. She was started on Norvasc, lisinopril, hydrochlorothiazide. She will need an outpatient BMP as follow-up with her PCP to monitor her kidney function with these new medications. With the institution of these new medications her blood pressures systolics have been in the 120s to 130s mostly. Patient Problems: Active and Suspected Problems Subcutaneous emphysema (Acute) Ribs, multiple fractures (Acute) Pneumothorax on right (Acute) Minuscule at right anterior base. Soft tissue swelling (Acute) Of head and neck area - Physical Exam Vitals/I&O's: Vital Signs Temp Pulse Resp BP Pulse Ox 98.1 F 93 20 H 109/50 L 94 12/22/19 14:30 12/22/19 14:54 12/22/19 14:30 12/22/19 14:30 12/22/19 14:30 Oxygen Flow Rate (L/min) [ 3 AMBULATION with Oxygen] Oxygen Flow Rate (L/min) 3 Oxygen Delivery Method Nasal Cannula Weight: 197 lb 8.547 oz Body Mass Index (BMI) 31.2 Intake and Output for Last 24 Hours 12/20/19 12/21/19 12/22/19 23:59 23:59 23:59 Intake Total 3165.00 / 3165.00 2658.25 / 2898.25 1653.75 / 1653.75 Output Total 251 / 251 225 / 225 Balance 2914.00 / 2914.00 2433.25 / 2673.25 1653.75 / 1653.75 General: Alert, Oriented x3, Cooperative, No apparent distress HEENT: Atraumatic, PERRLA, EOMI, Normocephalic Oral: Moist Mucosa Neck: Supple, No JVD Lungs: Clear to auscultation, Normal air movement, No rhonchi, No wheeze, No rales, Diminished Cardiovascular: Regular rate, Regular Rhythm, Normal S1, Normal S2, No murmurs Abdomen: Soft, Non Tender, Non-Distended, No Hepato-splenomegaly Extremities: No edema, Capillary Refill Less than 3 Seconds Skin: No rashes, No breakdown, - - Chest tube site is clean and dressed Neurological: Neuro grossly intact, Sensory exam intact to light touch and pain Psych/Mental Status: Normal Affect, Appropriate Current Medications Acetaminophen (Tylenol) 650 mg PO Q6H PRN PRN PRN Reason: Pain Score 1-10/Temp > 100.7 F Last Admin: 12/21/19 22:10 Dose: 650 mg Documented by: Albuterol Sulfate (Ventolin Aerosols) 2.5 mg INHALATION Q2H PRN PRN PRN Reason: SOB/Wheezing Albuterol Sulfate (Ventolin Aerosols) 2.5 mg INHALATION Q6HWA.RT [facility] Last Admin: 12/22/19 14:10 Dose: 2.5 mg Documented by: Amlodipine Besylate (Norvasc) 10 mg PO DAILY [facility] Last Admin: 12/22/19 08:38 Dose: 10 mg Documented by: Budesonide (Pulmicort Aerosol) 0.5 mg INHALATION Q12H.RT [facility] Last Admin: 12/22/19 07:40 Dose: 0.5 mg Documented by: Citalopram Hydrobromide (Celexa) 20 mg PO DAILY [facility] Last Admin: 12/22/19 08:38 Dose: 20 mg Documented by: Enoxaparin Sodium (Lovenox) 40 mg SC DAILY [facility] Last Admin: 12/22/19 08:38 Dose: 40 mg Documented by: Hydrochlorothiazide () 12.5 mg PO DAILY [facility] Last Admin: 12/22/19 08:38 Dose: 12.5 mg Documented by: Sodium Chloride () 1,000 mls @ 75 mls/hr IV .[id number] [facility] Last Infusion: 12/22/19 16:06 Dose: Infused Documented by: Lidocaine (Lidoderm Patch) 1 patch TOPICAL DAILY [facility] Last Admin: 12/22/19 11:53 Dose: 1 patch Documented by: Lisinopril (Zestril) 20 mg PO DAILY [facility] Last Admin: 12/22/19 08:38 Dose: 20 mg Documented by: Norethindrone (Dione) 0.35 mg PO DAILY [facility] Last Admin: 12/22/19 08:38 Dose: 0.35 mg Documented by: Nutritional Formula (Lactose Free) (Ensure Enlive) 120 ml PO 4X/DAY [facility] Last Admin: 12/22/19 08:38 Dose: 120 ml Documented by: Oxycodone HCl (Oxyir) 10 - 15 mg PO Q4H PRN PRN PRN Reason: Pain Score 6-10/10 Last Admin: 12/22/19 12:55 Dose: 15 mg Documented by: Pantoprazole Sodium (Protonix) 20 mg PO DAILY [facility] Last Admin: 12/22/19 08:38 Dose: 20 mg Documented by: Prochlorperazine Edisylate (Compazine Iv) 5 mg IV Q4H PRN PRN PRN Reason: Breakthrough Nausea/Vomiting Senna (Senokot) 2 tablet PO BID PRN PRN PRN Reason: CONSTIPATION Last Admin: 12/22/19 12:57 Dose: 2 tablet Documented by: Sodium Chloride () 10 - 40 ml IV UD PRN PRN Reason: SALINE FLUSH Last Admin: 12/20/19 01:30 Dose: 20 ml Documented by: Trazodone HCl (Desyrel) 150 mg PO QHS [facility] Last Admin: 12/21/19 22:10 Dose: 150 mg Documented by: Discharge Diet: No Restrictions Discharge Activity: Return to Normal Activity, May not drive while taking narcotic pain medications. Call your doctor if you observe: Fever of 101 or Higher, Shortness of breath, Dizziness, Fainting spells, Swelling in the ankles, Chest pain, Increased palpitations (irregular heartbeat) Additional Dressing/Incision Instructions:: Leave dressing in place until at least Thursday Home Medications: Medications to take at Discharge Norethindrone 1 tab PO DAILY 06/28/19 Hydroxyzine Pamoate 50 mg PO BID 11/01/19 Trazodone HCl 150 mg PO QHS PRN 11/01/19 Citalopram [Celexa] 20 mg PO DAILY 12/18/19 Oxycodone HCl/Acetaminophen [Percocet 5-325] 1 tab PO Q6H PRN PRN 3 Days #12 tab 12/18/19 Fexofenadine/Pseudoephedrine [Shilpa-D 24 Hour Tablet] 1 ea PO DAILY 12/19/19 Fluticasone/Salmeterol [Advair Hfa 115-21 Mcg Inhaler] 1 - 2 puff INHALATION DAILY 12/19/19 Omeprazole Magnesium [Prilosec Otc] 20 mg PO DAILY 03/30/20 Amlodipine [Norvasc] 10 mg PO DAILY #30 tab 12/22/19 Lidocaine [Lidoderm Patch] 1 patch TOPICAL DAILY #10 patch 12/22/19 Lidocaine [Lidoderm Patch] 1 patch TOPICAL DAILY 10 Days #10 patch 12/22/19 Lisinopril [Zestril] 20 mg PO DAILY #30 tab 12/22/19 hydroCHLOROthiazide [Hydrochlorothiazide] 12.5 mg PO DAILY #30 cap 12/22/19 Following Prescrptions Were Given to Patient: hydroCHLOROthiazide [Hydrochlorothiazide] 12.5 mg PO DAILY #30 cap Transmission Status: Received by [facility] Lidocaine [Lidoderm Patch] 1 patch TOPICAL DAILY 10 Days #10 patch Transmission Status: Received by [facility]/pharmacy #[id number] Lidocaine [Lidoderm Patch] 1 patch TOPICAL DAILY #10 patch Transmission Status: Received by [facility] Amlodipine [Norvasc] 10 mg PO DAILY #30 tab Transmission Status: Received by [facility] Lisinopril [Zestril] 20 mg PO DAILY #30 tab Transmission Status: Received by [facility] Primary Care Physician: Marium Alexis MD [Primary Care Provider] - Please follow up with your Primary Care Physician in: Televisit Please Follow Up With: Lauryn Bender MD - When: will call for televisit Additional Instructions: Obtain a BMP to monitor your renal function given the new blood pressure medications you were placed on. Would recommend a CBC in a few weeks to monitor your iron deficiency anemia. Disposition: Home Minutes spent on discharge:: 35 Patient Condition:: Stable Medical Necessity - Tobacco Use Smoking Status: Current every day smoker Tobacco Use: Cigarettes Meaningful Use Info Meaningful Use Diagnoses (Choose all that apply): None applicable Inpatient E&M: 27910 Disch Hosp
--- NOTE | 2019-12-23 13:34 | CASEMGMT ---
MIKEY MCKEON Discharge Follow-Up Phone Call. Lace: 11 Strata: 3 Discharge Date: 12/22/19 Adm Dx: Fractured ribs, SQ Emphysema. Attempted discharge follow-up phone call. No answer. Message left for pt to return call if she has any questions/concerns/needs. MIKEY MCKEON phone number provided. Vazquez ALLEN RN CM
== END 2019-12-22 16:23 | disposition home or self-care (01) | DRG 200 ==
LOC: ED 23:18 → PCU 12-19 04:01 → ICU 12-19 04:26 → PCU 12-20 09:39
PROVIDERS: Internal Medicine; Admitting Provider Internal Medicine; Emergency Provider Emergency Medicine; PCP Internal Medicine; Referring Provider Internal Medicine; Visit Provider Family Medicine
DX: S27.0XXA Traumatic pneumothorax, initial encounter (principal); S22.41XA Multiple fractures of ribs, right side, initial encounter for closed fracture; T79.7XXA Traumatic subcutaneous emphysema, initial encounter; W18.09XA Striking against other object with subsequent fall, initial encounter; J44.9 Chronic obstructive pulmonary disease, unspecified; I10 Essential (primary) hypertension; D50.9 Iron deficiency anemia, unspecified; E87.6 Hypokalemia; F32.9 Major depressive disorder, single episode, unspecified; F41.9 Anxiety disorder, unspecified; K21.9 Gastro-esophageal reflux disease without esophagitis; K70.10 Alcoholic hepatitis without ascites; F10.20 Alcohol dependence, uncomplicated; Y90.8 Blood alcohol level of 240 mg/100 ml or more; F17.210 Nicotine dependence, cigarettes, uncomplicated; E66.01 Morbid (severe) obesity due to excess calories; Z68.31 Body mass index [BMI] 31.0-31.9, adult; Z79.899 Other long term (current) drug therapy
CPT/HCPCS: 36415; 71045; 71250; 80048; 80053; 80307; 82550; 82977; 83540; 83550; 83735; 85025; 93005; 94640; 94762; 97802; 97803; 99251; 99285; 99406; J7030; A4216; G0463; J3490

== ENCOUNTER 2021-11-21 13:51 | Emergency (ER) | payer MEDICAID, SELFPAY ==
[2021-11-21 13:52] VITALS: BP 179/89; PULSE 120; RESP 16; TEMP 36; O2SAT 96; BMI 32.3
--- NOTE | 2021-11-21 13:54 | RAD_ITS ---
STUDY: X-RAY - LEFT ANKLE REASON FOR EXAM: Female, 55 years old. Injury due to a fall. TECHNIQUE: 3 view(s) of the ankle. COMPARISON: None. FINDINGS: Normal visualized distal tibia and fibula. Questionable tiny avulsion of the medial malleolus. Normal tibiotalar articulation and ankle mortise. Small plantar spur. The visualized subtalar, talonavicular, calcaneocuboid and tarsal articulations are normal. Soft tissue swelling. RAD/Ankle min 3 Views IMPRESSION: Questionable tiny avulsion of the medial malleolus. Soft tissue swelling. Electronically Signed: Devin Avalos MD at 14:30 EST ,
--- NOTE | 2021-11-21 13:54 | RAD_ITS ---
STUDY: X-RAY - LEFT WRIST REASON FOR EXAM: Female, 55 years old. Pain following a fall. TECHNIQUE: 3 view(s) of the wrist were obtained. COMPARISON: None. FINDINGS: Normal visualized distal radius and ulna. Normal radiocarpal articulation. Normal distal radioulnar articulation. Normal carpal bones. Normal carpal articulations. Normal carpometacarpal articulation of the thumb. Normal second through fifth carpometacarpal articulations. Normal visualized metacarpal bones. The soft tissue structures are unremarkable. RAD/Wrist min 3 Views IMPRESSION: Normal x-ray examination of the wrist. Electronically Signed: Devin Avalos MD at 14:29 EST ,
--- NOTE | 2021-11-21 16:17 | EDS_ITS ---
HPI History of Present Illness Chief Complaint: Lower Extremity Injury Narrative Narrative: Patient sustained a mechanical fall 2 days ago. She twisted her left ankle and then she fell on her left breast. No head injury no neck pain no other injury. She is able to ambulate but she has pain. [facility] Medical History Hypertension Home Medications norethindrone (contraceptive) 1 tab PO DAILY 06/28/19 [History Last Taken 12/18/19] Trazodone HCl 150 mg PO QHS PRN 11/01/19 [History Last Taken 12/15/19] hydroxyzine pamoate 50 mg PO BID 11/01/19 [History Last Taken 12/18/19] citalopram 20 mg PO DAILY 12/18/19 [History Last Taken 12/18/19] fexofenadine-pseudoephedrine 1 ea PO DAILY 12/19/19 [History Last Taken 12/18/19] fluticasone propion-salmeterol 1 - 2 puff INHALATION DAILY 12/19/19 [History Last Taken 12/14/19] omeprazole magnesium 20 mg PO DAILY 12/19/19 [History Last Taken 12/18/19] amlodipine 10 mg PO DAILY #30 tab 12/22/19 [Rx Last Taken Unknown] hydrochlorothiazide 12.5 mg PO DAILY #30 cap 12/22/19 [Rx Last Taken Unknown] lidocaine 1 patch TOPICAL DAILY #10 patch 12/22/19 [Rx Last Taken Unknown] lisinopril 20 mg PO DAILY #30 tab 12/22/19 [Rx Last Taken Unknown] Allergy/AdvReac Type Severity Reaction Status Date / Time hydroxychloroquine Allergy Itching Verified 11/21/21 13:53 [From Plaquenil] lorazepam [From Ativan] Allergy Itching Verified 11/21/21 13:53 Surgical History History of eye surgery Social History Smoking Status: Current every day smoker tobacco type: cigarettes ROS ROS ED ROS Narrative Social: Noncontributory Medications: Reviewed Past medical history: Reviewed Review of systems General: Patient has no head injury or loss of consciousness HEENT: No facial injury Neck: No neck pain Cardiovascular: Patient denies any chest pain or palpitations Chest wall: No chest wall contusions Respiratory: There is no shortness of breath GI: There is no nausea vomiting diarrhea or abdominal pain, no abdominal wall contusions Skin: No lacerations or abrasions Neurological: Patient has no memory loss, confusion, or any focal weakness Psychiatric: No recent behavioral changes Back: No back pain, no problems with ambulation Musculoskeletal: Left wrist and left ankle pain as in HPI All other systems are reviewed and normal EXAM Physical Exam Narrative Exam Narrative: Physical exam Vitals reviewed General: Does not appear in significant distress, no obvious injuries HEENT: No facial injury Head: No head injury Eyes: Extraocular movements intact Neck: No C-spine tenderness with full range of motion Heart: Regular rate normal pulses Chest wall: No chest wall pain Lungs clear lungs bilaterally with normal inspiration and expiration without tachypnea GI: Abdomen is soft and nontender there is no mass no guarding no abdominal wall contusion : Stable pelvis Musculoskeletal: Left wrist shows tenderness over the distal radius region. No snuffbox tenderness no other metacarpal tenderness. Some swelling in that region a full range of motion. Left ankle shows medial and lateral tenderness both, there is some edema present. No laxity. No foot pain. No proximal fifth metatarsal pain, no proximal fibular pain. Skin: No abrasions or laceration Neurological: Patient is alert and oriented with no focal deficits Const Vital Signs: 11/21/21 13:52 Temperature 96.8 F L Temperature Source Temporal Pulse Rate 120 H Respiratory Rate 16 Blood Pressure 179/89 H Blood Pressure Mean 119 Pulse Ox 96 Oxygen Delivery Method Room Air MDM MDM MDM Narrative Medical decision making narrative: Patient be placed in an Aircast and thumb spica splint and discharged in stable condition. She does have a small avulsion fracture of the medial malleolus but at this time she has no proximal fibular tenderness or any signs of a Maisonneuve fracture. Radiography Diagnostic Testing: Clinical Impression(s) from Imaging Studies Ankle X-Ray 11/21/21 13:54 IMPRESSION: Questionable tiny avulsion of the medial malleolus. Soft tissue swelling. Electronically Signed: Devin Avalos MD at 14:30 EST , Wrist X-Ray 11/21/21 13:54 IMPRESSION: Normal x-ray examination of the wrist. Electronically Signed: Devin Avalos MD at 14:29 EST , Wrist x-ray interpreted by me as and radiology is normal Left ankle x-ray interpreted by me and radiology shows soft tissue swelling and a slight avulsion fracture of the medial malleolus. Discharge Plan Triage Chief Complaint: Lower Extremity Injury ED Provider: Amos Rubio Dx/Rx/DC Orders Clinical Impression: Avulsion fracture of medial malleolus, Contusion of left wrist Instructions: Bruises (Contusions), ED Ankle Sprain (Adult) Prescriptions: No Action norethindrone (contraceptive) 0.35 MG tablet 1 tab PO DAILY RF: 0 hydroxyzine pamoate 50 MG capsule 50 mg PO BID RF: 0 Trazodone HCl 150 mg PO QHS PRN (Reason: Sleep) RF: 0 citalopram 20 MG tablet 20 mg PO DAILY RF: 0 omeprazole magnesium 20 MG tablet,delayed release (DR/EC) 20 mg PO DAILY RF: 0 fexofenadine-pseudoephedrine 1 EACH tablet extended release 24 hr 1 ea PO DAILY RF: 0 fluticasone propion-salmeterol 1 PUFF inhaler 1 - 2 puff inhalation DAILY RF: 0 lisinopril 20 MG tablet 20 mg PO DAILY Qty: 30 RF: 0 amlodipine 10 MG tablet 10 mg PO DAILY Qty: 30 RF: 0 lidocaine 1 PATCH patch 1 patch topical DAILY Qty: 10 RF: 0 hydrochlorothiazide 12.5 MG capsule 12.5 mg PO DAILY Qty: 30 RF: 0 Referrals: Homero Staley DO [STAFF PHYSICIAN] - 3-5 Days Disposition Disposition: Home, Self Care
== END 2021-11-21 16:54 | disposition home or self-care (01) ==
LOC: ED 16:45
PROVIDERS: Emergency Provider Emergency Medicine; PCP Family Medicine; Visit Provider Emergency Medicine
DX: S82.52XA Displaced fracture of medial malleolus of left tibia, initial encounter for closed fracture (principal); S60.212A Contusion of left wrist, initial encounter; W18.39XA Other fall on same level, initial encounter; X50.1XXA Overexertion from prolonged static or awkward postures, initial encounter; I10 Essential (primary) hypertension; F17.210 Nicotine dependence, cigarettes, uncomplicated; Z79.899 Other long term (current) drug therapy
CPT/HCPCS: 73110; 73610; 99284

== ENCOUNTER 2022-03-26 12:21 | Emergency (ER) | payer MEDICAID, SELFPAY ==
[2022-03-26 12:22] VITALS: BP 187/97; PULSE 113; RESP 18; TEMP 35.8; O2SAT 95; BMI 32.3
--- NOTE | 2022-03-26 12:50 | RAD_ITS ---
STUDY: X-RAY - PELVIS AND RIGHT HIP REASON FOR EXAM: Female, 56 years old. Right hip pain. No known injury. TECHNIQUE: 3 views of the pelvis and hip. COMPARISON: None. FINDINGS: There is a non-specific bowel gas pattern. There are multiple calcified phleboliths. Normal bilateral iliac wings, sacroiliac joints and visualized sacrum. Normal bilateral superior and inferior pubic rami. There is narrowing with sclerosis of the pubic symphysis. Normal bilateral ischial tuberosities. Normal visualized femoral head. Normal acetabulum. Normal hip joint. RAD/HIP, UNI W/ Pelvis 2-3 Views IMPRESSION: Degenerative changes of the symphysis pubis. Electronically Signed: Devin Avalos MD at 13:15 EDT ,
--- NOTE | 2022-03-26 13:33 | EX.ED.DYSGE1 ---
HPI History of Present Illness Chief Complaint: Lower Extremity Injury Narrative Narrative: Patient presents with right hip pain over the past few days. It is in her buttocks and groin region is worse with ambulation. There is no history of trauma. No fevers chills cough or congestion. There is no radicular pains. Patient denies any back pain. No bowel or bladder compromise no urinary retention symptoms. No foot drop. PFSH PFS Medical History GERD (gastroesophageal reflux disease) Hypertension Home Medications Trazodone HCl 150 mg PO QHS PRN Sleep 11/01/19 [History Last Taken 12/15/19] fluticasone propionate 115 mcg-salmeterol 21 mcg/actuation HFA inhaler 1 - 2 puff inhalation DAILY SOB 12/19/19 [History Last Taken 12/14/19] omeprazole magnesium 20 mg tablet,delayed release 20 mg PO DAILY GERD 12/19/19 [History Last Taken 12/18/19] hydrocodone-acetaminophen 5-325mg 5mg-325mg 1 tab PO QHS PRN pain 3 days #10 tabs 03/26/22 [Rx Last Taken Unknown] Allergy/AdvReac Type Severity Reaction Status Date / Time hydroxychloroquine Allergy Itching Verified 03/26/22 12:23 [From Plaquenil] lorazepam [From Ativan] Allergy Itching Verified 03/26/22 12:23 Surgical History History of eye surgery Social History Smoking Status: Current every day smoker tobacco type: cigarettes ROS ROS ED ROS Narrative Past medical history: Reviewed Medications: Reviewed Social history: She is a smoker Review of systems: All systems negative except as indicated General: No fever Neck: No neck pain Cardiovascular: No chest pain Respiratory: No shortness of breath or cough Gastrointestinal: No abdominal pain, nausea vomiting or diarrhea Genitourinary: No dysuria, no retention symptoms Musculoskeletal: Hip pain as in HPI Skin: No rash Neurological: No memory loss, confusion or any focal weakness Psych: No recent behavioral changes Hematologic: No easy bleeding or easy bruising EXAM Physical Exam Narrative Exam Narrative: Vitals reviewed General: Patient appears in some discomfort HEENT: Moist mucous membranes Neck: Nontender Cardiovascular normal heart rate Respiratory: No respiratory difficulty speaking in full sentences Abdomen: Soft and nontender, there is no suprapubic mass or pain Back: No back pain. Extremities: There is tenderness in the right buttock region and right groin region, very slight tenderness with logrolling and some tenderness with flexion most of the pain however is over the SI joint. Neurological: There is normal plantar flexion and dorsiflexion of both feet and great toes. Patellar and Achilles reflexes are normal. Normal strength and sensation. Negative straight leg test. Skin: No rash Psychiatric: Slightly anxious. Const Vital Signs: 03/26/22 12:22 Temperature 96.5 F L Temperature Source Temporal Pulse Rate 113 H Respiratory Rate 18 Blood Pressure 187/97 H Blood Pressure Mean 127 Pulse Ox 95 Oxygen Delivery Method Room Air MDM MDM MDM Narrative Medical decision making narrative: Patient likely has sacroiliitis. I will treat her as such and she seems to be in quite a bit of pain there I will give her analgesia and I will give her steroids. She is not diabetic. I will refer to orthopedics Radiography Diagnostic Testing: Clinical Impression(s) from Imaging Studies Hip/Pelvis X-Ray 03/26/22 12:50 IMPRESSION: Degenerative changes of the symphysis pubis. Electronically Signed: Devin Avalos MD at 13:15 EDT , Hip x-ray read by me and radiologist does not show any acute abnormality. Radiologist does see some degeneration in the pubic symphysis Discharge Plan Triage Chief Complaint: Lower Extremity Injury ED Provider: Amos Rubio Dx/Rx/DC Orders Clinical Impression: Sacroiliac joint pain, Acute hip pain Instructions: Anatomy of the Sacroiliac Joint Prescriptions: New hydrocodone-acetaminophen 5-325 mg tablet 1 tab PO QHS PRN (Reason: pain) 3 Days Qty: 10 0RF No Action Trazodone HCl 150 mg PO QHS PRN (Reason: Sleep) omeprazole magnesium 20 MG tablet,delayed release (DR/EC) 20 mg PO DAILY fluticasone propion-salmeterol 1 PUFF inhaler 1 - 2 puff inhalation DAILY Primary Care Provider: Deshawn Anderson Referrals: Deshawn Anderson MD [Primary Care Provider] - Disposition Disposition: Home, Self Care
[2022-03-26 13:39] VITALS: RESP 18
[2022-03-26] MEDS: oxyCODONE 5 MG Tablet PO (13:53)
[2022-03-26] MEDS: Triamcinolone Acetonide 40 MG/ML Vial IM (13:53)
[2022-03-26] MEDS: Ketorolac 30 MG/ML Syringe IM (13:54)
== END 2022-03-26 13:58 | disposition home or self-care (01) ==
PROVIDERS: Emergency Provider Emergency Medicine; PCP Family Medicine; Visit Provider Emergency Medicine
DX: M25.551 Pain in right hip (principal); M53.3 Sacrococcygeal disorders, not elsewhere classified; I10 Essential (primary) hypertension; K21.9 Gastro-esophageal reflux disease without esophagitis; F17.210 Nicotine dependence, cigarettes, uncomplicated; Z79.899 Other long term (current) drug therapy
CPT/HCPCS: 73502; 96372; 99283

== ENCOUNTER 2022-08-28 23:11 | Emergency (ER) | payer OTHER, MEDICAID, SELFPAY ==
[2022-08-28 23:13] VITALS: BP 131/111; PULSE 92; RESP 25; TEMP 37; O2SAT 91; BMI 35.2
--- NOTE | 2022-08-28 23:24 | RAD_ITS ---
EXAM: XR CHEST, 1 VIEW CLINICAL INDICATION: dyspnea TECHNIQUE: Frontal view of the chest. This report was created using [employer] report generation technology. COMPARISON: 12/22/2019 FINDINGS: LUNGS AND PLEURAL SPACES: Unremarkable. No consolidation or edema. No pneumothorax. No effusion. HEART: Unremarkable. Cardiac silhouette not enlarged. MEDIASTINUM: Central airways and mediastinal contour are unremarkable. BONES/JOINTS: Unremarkable. SOFT TISSUES: Unremarkable. RAD/Chest 1 View (Portable) IMPRESSION: No radiographic evidence of inhalational injury or other acute cardiopulmonary disease. Electronically Signed: Gigi Lagos MD at 0:06 EST ,
--- NOTE | 2022-08-28 23:24 | RAD_ITS ---
EXAM: XR RIGHT WRIST COMPLETE, 3 OR MORE VIEWS CLINICAL INDICATION: pain TECHNIQUE: Frontal, lateral and oblique views of the right wrist. This report was created using [employer] report generation technology. COMPARISON: None. FINDINGS: BONES/JOINTS: Unremarkable. No acute fracture. No subluxation. Normal alignment. Preservation of the joint space. No sclerotic or destructive changes observed. SOFT TISSUES: Unremarkable. No soft tissue swelling or gas. No radiopaque foreign body. RAD/Wrist min 3 Views IMPRESSION: Negative right wrist x-rays. Electronically Signed: Gigi Lagos MD at 0:07 EST ,
--- NOTE | 2022-08-28 23:24 | RAD_ITS ---
EXAM: XR LEFT TIBIA AND FIBULA, 2 VIEWS CLINICAL INDICATION: pain TECHNIQUE: Frontal and lateral views of the left tibia and fibula. This report was created using [employer] report generation technology. COMPARISON: None. FINDINGS: BONES/JOINTS: Oblique fracture of the distal tibial shaft. Oblique fracture of the proximal fibular shaft. Preservation of the joint space. No sclerotic or destructive changes observed. SOFT TISSUES: Diffuse soft tissue swelling. No radiopaque foreign body. RAD/Tibia & Fibula 2 Views IMPRESSION: 1. Oblique fracture of the distal tibial shaft. 2. Oblique fracture of the proximal fibular shaft. Electronically Signed: Gigi Lagos MD at 0:07 EST ,
[2022-08-28] MEDS: Morphine 4 MG/ML Syringe IV (23:30)
[2022-08-28] MEDS: Ondansetron 4 MG/2 ML Vial IV (23:30)
[2022-08-28 23:44] LABS: Absolute Lymphocyte Count 1.33 X10^3/uL (0.83-4.51); Absolute Neutrophil Count 8.3 X10^3/uL (2.0-7.7); Basophil# 0.05 X10^3/uL; Basophil% 0.5 % (0-1); Eosinophil# 0.11 X10^3/uL; Hematocrit 43.1 % (37-47); Lymphocyte # 1.33 X10^3/ul (0.83-4.51); Lymphocyte % 12.5 % (19-41); Mean Corp Hgb Conc 30.2 g/dL (32-36); Mean Corpuscular Hgb 24.9 pg (27.0-32.0); Mean Corpuscular Volume 82.4 fL (81-99); Monocyte# 0.85 X10^3/uL; NRBC Flagged by Analyzer 0 % (0-5); Neutrophil # 8.29 X10^3/uL (2.7-7.7); Neutrophil % 77.6 % (47-70); Platelet Count 319 K/mm3 (150-450); RBC Distribution Width CV 19.5 % (11.6-14.6); RBC Distribution Width SD 56.9 fl (35.1-43.9); Red Blood Count 5.23 M/mm3 (4.2-5.4); White Blood Count 10.7 K/mm3 (4.4-11.0)
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
[2022-08-29] LABS: Anion Gap 8 (5-15); BUN 7 mg/dL (7-18); BUN/Creat Ratio 10.2 RATIO (10-20); Calcium,Total 8.8 mg/dL (8.5-10.1); Chloride 110 mmol/L (98-107); Creatinine, Serum 0.69 mg/dL (0.55-1.02); EST Glomerular Filtration Rate 93 mL/min (>60); Est Glom Filt Rate - Afr Amer 113 mL/min (>60); Estimated Creatinine Clearance 85.23 ml/min; Glucose 116 mg/dL (74-106); Sodium Level 145 mmol/L (136-145)
[2022-08-29 00:13] VITALS: BP 123/75; PULSE 82; RESP 18; O2SAT 93
[2022-08-29 00:18] LABS: Carboxyhemoglobin Frac (CO) 12.3 % (0.0-1.5)
--- NOTE | 2022-08-29 00:19 | ED.RN ---
Pt O2 dropped to 87% on room air. Pt placed on 2L NC and brought up to 93%. Dr. Sherron martinez.
[2022-08-29 01:00] VITALS: BP 112/57; PULSE 71; RESP 22; O2SAT 100
--- NOTE | 2022-08-29 01:25 | ED.RN ---
Pt d/c own IV and continuing to take off ECG leads, BP cuff and O2 sensor. Pt angry with transfer decision. This Rn tried to explain reason for transfer, pt continuing to get angry with RN.
--- NOTE | 2022-08-29 01:34 | ED.RN ---
DAUGHTER CALLED IN REQUESTING UPDATE. STATING SHE WILL BE IN SHORTLY.
[2022-08-29 02:00] VITALS: BP 117/69; PULSE 77; RESP 22; O2SAT 100
[2022-08-29] MEDS: HYDROmorphone 1 MG/ML Syringe IV (02:34)
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
[2022-08-29 03:00] VITALS: BP 125/65; PULSE 84; RESP 16; O2SAT 100
[2022-08-29 03:06] VITALS: BP 125/65; PULSE 80; RESP 15; O2SAT 100
== END 2022-08-29 03:54 | disposition short-term general hospital (02) ==
PROVIDERS: Emergency Provider Emergency Medicine; PCP Family Medicine; Visit Provider Emergency Medicine
DX: S82.232A Displaced oblique fracture of shaft of left tibia, initial encounter for closed fracture (principal); J68.9 Unspecified respiratory condition due to chemicals, gases, fumes and vapors; I10 Essential (primary) hypertension; W01.0XXA Fall on same level from slipping, tripping and stumbling without subsequent striking against object, initial encounter; F17.210 Nicotine dependence, cigarettes, uncomplicated; K21.9 Gastro-esophageal reflux disease without esophagitis; T23.201A Burn of second degree of right hand, unspecified site, initial encounter; T31.0 Burns involving less than 10% of body surface; X08.8XXA Exposure to other specified smoke, fire and flames, initial encounter
CPT/HCPCS: 71045; 73110; 73590; 80048; 82077; 82375; 85025; 96374; 96375; 99285; A4216; J2405